=== PATIENT | male | born 1965 | race Caucasian/White ===

== ENCOUNTER → 2023-02-15 | Outpatient (CLI) | payer MEDICARE ==
--- NOTE | 2023-02-15 12:57 | US ---
EXAMINATION TYPE: US abdomen complete DATE OF EXAM: 02/15/2023 COMPARISON: NONE CLINICAL INDICATION: Male, 57 years old with history of R09.89 BRUIT; pain TECHNIQUE: Multiple sonographic images of the abdomen are obtained. FINDINGS: EXAM MEASUREMENTS: Liver Length: 11.8 cm Gallbladder Wall: 0.2 cm CBD: 0.5 cm Spleen: 16.7 cm Right Kidney: 13.3 x 7.2 x5.5 cm Left Kidney: 14.2 x 5[address] TEST EXAMINER NOTES: Pancreas: Obscured by bowel gas Liver: coarse echotexture. Main and left portal vein are prominent. Gallbladder: wnl Evidence for sonographic Gan's sign: No CBD: wnl Spleen: splenomegaly Right Kidney: No hydronephrosis or masses seen. Mildly enlarged Left Kidney: No hydronephrosis or masses seen. Mildly enlarged. Upper IVC: wnl Abd Aorta: Poorly visualized, mostly obscured by bowel. Anechoic area with well defined borders noted inferior to right kidney measuring 12.8 x 5.5 x 6.8cm. Exam limited by body habitus and overlying bowel gas. The pancreas is obscured by overlying bowel gas. Liver demonstrates coarsened echotexture without foc al lesion identified. Prominence of the patent portal veins. Gallbladder is unremarkable without evid ence of stones, wall thickening, or surrounding fluid. Negative sonographic Gan sign. Common bile duct is within normal limits. Splenomegaly. Both kidneys appear prominent size without evidence for h ydronephrosis, nephrolithiasis, or solid masses. The upper IVC is within normal limits. The abdominal aorta is obscured by overlying bowel gas. Thin-walled cystic lesion identified inferior to the right kidney measuring up to 12.8 cm. IMPRESSION: Limited examination due to patient body habitus and overlying bowel gas. 1. Thin-walled cystic 12.8 cm lesion inferior to the right kidney. This may represent an exophytic re nal cyst versus other etiologies. Further evaluation with CT abdomen pelvis with IV contrast is recom mended. 2. Splenomegaly.
== END | disposition home or self-care (01) ==
LOC: RADUSWWP 10:27
PROVIDERS: ATTEND Internal Medicine Gastroenterology
DX: R16.1 Splenomegaly, not elsewhere classified (principal); N28.1 Cyst of kidney, acquired; R10.9 Unspecified abdominal pain; R09.89 Other specified symptoms and signs involving the circulatory and respiratory systems
CPT/HCPCS: 76700

== ENCOUNTER 2023-02-21 01:38 | Inpatient (IN) | payer MEDICARE, MEDICAID ==
[2023-02-21] MEDS ORDERED: ONDANSETRON 4 MG/2 ML VIAL IVP STA (01:46)
[2023-02-21] MEDS: NALOXONE 0.4 MG/ML 1 ML VIAL IVP STA ×5 (01:46→03:28)
[2023-02-21 01:50] LABS: Glucose,Whole Blood 122 mg/dL (70-110)
[2023-02-21] MEDS ORDERED: SODIUM CHLORIDE 0.9% 2,000 ML IV STA (02:13)
[2023-02-21 02:42] LABS: ALT 55 U/L (4-49); AST 55 U/L (17-59); Acetaminophen <10.0 ug/mL; African American GFR (CKD) >90 (>60 ml/min/1.73 sqM); Albumin 3.5 g/dL (3.5-5.0); Alcohol <10 mg/dL; Alkaline Phosphatase 136 U/L (38-126); Anion Gap 12 mmol/L; Blood Urea Nitrogen 21 mg/dL (9-20); Carbon Dioxide 23 mmol/L (22-30); Chloride 103 mmol/L (98-107); Glucose 109 mg/dL (74-99); Non-African American GFR(CKD) >90 (>60 ml/min/1.73 sqM); Potassium 3.8 mmol/L (3.5-5.1); Salicylate <1.0 mg/dL; Sodium 138 mmol/L (137-145); Total Bilirubin 1.5 mg/dL (0.2-1.3); Total Protein 7.6 g/dL (6.3-8.2)
--- NOTE | 2023-02-21 02:55 | ED ---
Overdose HPI - General Chief Complaint: Overdose Stated Complaint: Overdose Time Seen by Provider: 02/21/23 01:45 Source: EMS Mode of arrival: EMS - History of Present Illness Initial Comments: 57-year-old male presents to the emergency department after he took an unknown amount of hydromorphone, gabapentin and Flexeril. It is reported by EMS that the patient got in an argument with his girlfriend. She saw him with a handful of pills in his hand. Patient apparently took these medications in an attempt to harm himself. Ingestion happened 30 minutes prior to hospital arrival. He is prescribed hydromorphone 4 mg to be taken 3 times daily as well as gabapentin 300 mg and Flexeril 10 mg. Patient cannot originally state how many of each pill he took. Respiratory rate is approximately 4 a minutes. When the patient is given Narcan 0.4 mg IV, he does respond and states that he took "2 extra Dilaudid" as well as "2 extra gabapentin". Patient is undressed and is found with a gun in his underwear. This is given to police who are here to petition the patient. We also found drug paraphernalia in his coat pocket - Related Data Allergies Allergy/AdvReac Type Severity Reaction Status Date / Time Unable to Assess Allergy Verified 02/21/23 01:45 Review of Systems ROS Statement: Those systems with pertinent positive or pertinent negative responses have been documented in the HPI. ROS Other: All systems not noted in ROS Statement are negative. Past Medical History Past Medical History: No Reported History Additional Past Medical History / Comment(s): UTO History of Any Multi-Drug Resistant Organisms: None Reported Past Surgical History: No Surgical Hx Reported Additional Past Surgical History / Comment(s): UTO Past Psychological History: No Psychological Hx Reported Smoking Status: Unknown if ever smoked Past Alcohol Use History: None Reported Past Drug Use History: None Reported General Exam Limitations: altered mental status General appearance: lethargic Head exam: Present: atraumatic, normocephalic, normal inspection Pupils: Present: miosis ENT exam: Present: mucous membranes dry Respiratory exam: Present: other (Patient has a respiratory rate of 2-4 upon arrival) Cardiovascular Exam: Present: regular rate, normal rhythm, normal heart sounds. Absent: systolic murmur, diastolic murmur, rubs, gallop, clicks Neurological exam: Present: altered Skin exam: Present: warm, dry, intact, normal color. Absent: rash Course Vital Signs 02/21/23 02/21/23 02/21/23 01:39 01:45 01:46 Pulse Rate 97 94 Respiratory 14 5 L 5 L Rate Blood Pressure 111/58 102/76 O2 Sat by Pulse 90 L 88 L Oximetry 02/21/23 02/21/23 02/21/23 02:46 02:48 02:51 Pulse Rate 82 81 Respiratory 7 L 6 L 15 Rate Blood Pressure 104/66 120/86 O2 Sat by Pulse 94 L 95 Oximetry 02/21/23 02/21/23 02/21/23 03:28 04:00 04:17 Pulse Rate 95 Respiratory 7 L 8 L 7 L Rate Blood Pressure 120/73 O2 Sat by Pulse 88 L Oximetry Medical Decision Making - Medical Decision Making Was pt. sent in by a medical professional or institution (, PA, EDUCATION AND TRAINING COORDINATOR, urgent care, hospital, or long term...) When possible be specific @ -No Did you speak to anyone other than the patient for history (EMS, parent, family, police, friend...)? What history was obtained from this source @ -Spoke with EMS for history Did you review nursing and triage notes (agree or disagree)? Why? @ -I reviewed and agree with nursing and triage notes Were old charts reviewed (outside hosp., previous admission, EMS record, old EKG, old radiological studies, urgent care reports/EKG's, long term records)? Report findings @ -No old charts were reviewed Differential Diagnosis (chest pain, altered mental status, abdominal pain women, abdominal pain men, vaginal bleeding, weakness, fever, dyspnea, syncope, headache, dizziness, GI bleed, back pain, seizure, CVA, palpatations, mental health, musculoskeletal)? @ -Differential Altered Mental Status: Hypoglycemia, DKA, hypercapnia, ETOH, overdose, CO poisoning, trauma, myxedema coma, HTN encephalopathy, infection, encephalitis, psychosis, intercranial hemorrhage, hepatic encephalopathy, meningitis, CVA, this is not meant to be an all-inclusive list EKG interpreted by me (3pts min.). @ -Yes and demonstrates sinus rhythm with rate 98..MN interval 140. QRS 106. QTC of 4:30. No acute ST segment elevations or depressions X-rays interpreted by me (1pt min.). @ -Yes and demonstrates patchy infiltrate lower lobe CT interpreted by me (1pt min.). @ -None done U/S interpreted by me (1pt. min.). @ -None done What testing was considered but not performed or refused? (CT, X-rays, U/S, labs)? Why? @ -None What meds were considered but not given or refused? Why? @ -None Did you discuss the management of the patient with other professionals (professionals i.e. , PA, EDUCATION AND TRAINING COORDINATOR, lab, RT, psych nurse, social work assistant, diesel tractor engine mechanic, teacher, chief compliance officer, case packer)? Give summary @ -Spoke with pack train driver from [facility] in regards to management of the patient. I also spoke with Angel from ICU Was smoking cessation discussed for >3mins.? @ -No Was critical care preformed (if so, how long)? @ -Yes, 35 minutes for multiple doses of Narcan with management of Narcan drip Were there social determinants of health that impacted care today? How? (H omelessness, low income, unemployed, alcoholism, drug addiction, transportation, low edu. Level, literacy, decrease access to med. care, long term, rehab)? @ -No Was there de-escalation of care discussed even if they declined (Discuss DNR or withdrawal of care, Hospice)? DNR status @ -No What co-morbidities impacted this encounter? (DM, HTN, Smoking, COPD, CAD, Cancer, CVA, ARF, Chemo, Hep., AIDS, mental health diagnosis, sleep apnea, morbid obesity)? @ -Chronic back pain Was patient admitted / discharged? Hospital course, mention meds given and route, prescriptions, significant lab abnormalities, going to OR and other pertinent info. @ -Upon arrival patient was placed in a trauma 2. His respiratory rate is approximately 2-4. He is placed on continuous pulse ox and cardiac monitoring. Patient is given 0.4 mg of Narcan with improvement in his respiratory rate and mental status. I attempt to obtain a history however patient is still overly sedated. Laboratory studies are conducted and a chest x-ray is performed. Patient does receive 2 additional 0.4 mg doses of Narcan with decreased respiratory drive. Because of this the patient is placed on a Narcan drip. I did speak with the pack train driver at [facility] in regards to management of the patient. States that due to chronic use of Dilaudid, Narcan should be kept at lowest acceptable dose. Patient is on 0.4 mg per hour with oxygenation of 96% without oxygen. Patient will require admission to the ICU due to the Narcan drip. Spoke with Angel the patient into the ICU. I also spoke with Dr. Silver for admission. Psychiatry will be consulted. Patient taken to the floor in serious condition with a guarded prognosis Undiagnosed new problem with uncertain prognosis? @ -Yes Drug Therapy requiring intensive monitoring for toxicity (Heparin, Nitro, Insulin, Cardizem)? @ -Narcan drip Were any procedures done? @ -No Diagnosis/symptom? @ -Acute intentional overdose-gabapentin/opiates/muscle relaxer Acute, or Chronic, or Acute on Chronic? @ -acute Uncomplicated (without systemic symptoms) or Complicated (systemic symptoms)? @ -complicated Side effects of treatment? @ -No Exacerbation, Progression, or Severe Exacerbation? @ -No Poses a threat to life or bodily function? How? (Chest pain, [place], [place], pneumonia, PE, COPD, DKA, ARF, appy, cholecystitis, CVA, Diverticulitis, Homicidal, Suicidal, threat to staff... and all critical care pts) @ -Yes patient has decreased respiratory drive due to opiate overdose - Lab Data Result diagrams: 02/21/23 02:24 02/21/23 02:07 Lab Results 02/21/23 02/21/23 02/21/23 Range/Units 01:49 02:07 02:07 WBC (3.8-10.6) k/uL RBC (4.30-5.90) m/uL Hgb (13.0-17.5) gm/dL Hct (39.0-53.0) % MCV (80.0-100.0) fL MCH (25.0-35.0) pg MCHC (31.0-37.0) g/dL RDW (11.5-15.5) % Plt Count (150-450) k/uL MPV Neutrophils % % Lymphocytes % % Monocytes % % Eosinophils % % Basophils % % Neutrophils # (1.3-7.7) k/uL Lymphocytes # (1.0-4.8) k/uL Monocytes # (0-1.0) k/uL Eosinophils # (0-0.7) k/uL Basophils # (0-0.2) k/uL Sodium 138 (137-145) mmol/L Potassium 3.8 (3.5-5.1) mmol/L Chloride 103 (98-107) mmol/L Carbon Dioxide 23 (22-30) mmol/L Anion Gap 12 mmol/L BUN 21 H (9-20) mg/dL Creatinine 0.61 L (0.66-1.25) mg/dL Est GFR (CKD-EPI)AfAm >90 (>60 ml/min/1.73 sqM) Est GFR (CKD-EPI)NonAf >90 (>60 ml/min/1.73 sqM) Glucose 109 H (74-99) mg/dL POC Glucose (mg/dL) 122 H (70-110) mg/dL POC Glu Motion Picture Equipment Supervisor ID Angel Luis Bah Calcium 9.0 (8.4-10.2) mg/dL Total Bilirubin 1.5 H (0.2-1.3) mg/dL AST 55 (17-59) U/L ALT 55 H (4-49) U/L Alkaline Phosphatase 136 H (38-126) U/L Total Protein 7.6 (6.3-8.2) g/dL Albumin 3.5 (3.5-5.0) g/dL Urine Color Urine Appearance (Clear) Urine pH (5.0-8.0) Ur Specific [place] (1.001-1.035) Urine Protein (Negative) Urine Glucose (UA) (Negative) Urine Ketones (Negative) Urine Blood (Negative) Urine Nitrite (Negative) Urine Bilirubin (Negative) Urine Urobilinogen (<2.0) mg/dL Ur Leukocyte Esterase (Negative) Urine RBC (0-5) /hpf Urine WBC (0-5) /hpf Hyaline Casts (0-2) /lpf Urine Mucus (None) /hpf Salicylates <1.0 mg/dL Urine Opiates Screen Not Detected (NotDetected) Ur Oxycodone Screen Detected H (NotDetected) Urine Methadone Screen Not Detected (NotDetected) Ur Propoxyphene Screen Not Detected (NotDetected) Acetaminophen <10.0 ug/mL Ur Barbiturates Screen Not Detected (NotDetected) U Tricyclic Antidepress Detected H (NotDetected) Ur Phencyclidine Scrn Not Detected (NotDetected) Ur Amphetamines Screen Not Detected (NotDetected) U Methamphetamines Scrn Not Detected (NotDetected) U Benzodiazepines Scrn Not Detected (NotDetected) Urine Cocaine Screen Detected H (NotDetected) U Marijuana (THC) Screen Detected H (NotDetected) Serum Alcohol <10 mg/dL 02/21/23 02/21/23 Range/Units 02:24 02:24 WBC 7.4 (3.8-10.6) k/uL RBC 4.34 (4.30-5.90) m/uL Hgb 13.5 (13.0-17.5) gm/dL Hct 40.0 (39.0-53.0) % MCV 92.0 (80.0-100.0) fL MCH 31.1 (25.0-35.0) pg MCHC 33.8 (31.0-37.0) g/dL RDW 13.9 (11.5-15.5) % Plt Count 122 L (150-450) k/uL MPV 9.5 Neutrophils % 76 % Lymphocytes % 12 % Monocytes % 6 % Eosinophils % 3 % Basophils % 0 % Neutrophils # 5.7 (1.3-7.7) k/uL Lymphocytes # 0.9 L (1.0-4.8) k/uL Monocytes # 0.4 (0-1.0) k/uL Eosinophils # 0.2 (0-0.7) k/uL Basophils # 0.0 (0-0.2) k/uL Sodium (137-145) mmol/L Potassium (3.5-5.1) mmol/L Chloride (98-107) mmol/L Carbon Dioxide (22-30) mmol/L Anion Gap mmol/L BUN (9-20) mg/dL Creatinine (0.66-1.25) mg/dL Est GFR (CKD-EPI)AfAm (>60 ml/min/1.73 sqM) Est GFR (CKD-EPI)NonAf (>60 ml/min/1.73 sqM) Glucose (74-99) mg/dL POC Glucose (mg/dL) (70-110) mg/dL POC Glu Motion Picture Equipment Supervisor ID Calcium (8.4-10.2) mg/dL Total Bilirubin (0.2-1.3) mg/dL AST (17-59) U/L ALT (4-49) U/L Alkaline Phosphatase (38-126) U/L Total Protein (6.3-8.2) g/dL Albumin (3.5-5.0) g/dL Urine Color Yellow Urine Appearance Clear (Clear) Urine pH 6.0 (5.0-8.0) Ur Specific [place] 1.035 (1.001-1.035) Urine Protein 1+ H (Negative) Urine Glucose (UA) Negative (Negative) Urine Ketones Trace H (Negative) Urine Blood Trace H (Negative) Urine Nitrite Negative (Negative) Urine Bilirubin Negative (Negative) Urine Urobilinogen 4.0 (<2.0) mg/dL Ur Leukocyte Esterase Negative (Negative) Urine RBC 26 H (0-5) /hpf Urine WBC 3 (0-5) /hpf Hyaline Casts 3 H (0-2) /lpf Urine Mucus Moderate H (None) /hpf Salicylates mg/dL Urine Opiates Screen (NotDetected) Ur Oxycodone Screen (NotDetected) Urine Methadone Screen (NotDetected) Ur Propoxyphene Screen (NotDetected) Acetaminophen ug/mL Ur Barbiturates Screen (NotDetected) U Tricyclic Antidepress (NotDetected) Ur Phencyclidine Scrn (NotDetected) Ur Amphetamines Screen (NotDetected) U Methamphetamines Scrn (NotDetected) U Benzodiazepines Scrn (NotDetected) Urine Cocaine Screen (NotDetected) U Marijuana (THC) Screen (NotDetected) Serum Alcohol mg/dL Disposition Clinical Impression: Opiate overdose, Gabapentin overdose, Muscle relaxant overdose Disposition: ADMITTED IP TO THIS [facility] Condition: Serious Is patient prescribed a controlled substance at d/c from ED?: No Time of Disposition: 05:13 Decision to Admit Reason: Admit from EC Decision Date: 02/21/23 Decision Time: 05:13
[2023-02-21 03:08] LABS: Basophils % (A) 0 %; Eosinophils # (A) 0.2 k/uL (0-0.7); Eosinophils % (A) 3 %; HGB 13.5 gm/dL (13.0-17.5); Lymphocytes # (A) 0.9 k/uL (1.0-4.8); Lymphocytes % (A) 12 %; MCH 31.1 pg (25.0-35.0); MCHC 33.8 g/dL (31.0-37.0); Mean Platelet Volume 9.5; Monocytes # (A) 0.4 k/uL (0-1.0); Monocytes % (A) 6 %; Neutrophils # (A) 5.7 k/uL (1.3-7.7); Neutrophils % (A) 76 %; Platelet Count 122 k/uL (150-450); RBC 4.34 m/uL (4.30-5.90); RDW 13.9 % (11.5-15.5); WBC 7.4 k/uL (3.8-10.6)
[2023-02-21 03:47] LABS: Amphetamine Screen,Urine Not Detected (NotDetected); Barbiturate Screen,Urine Not Detected (NotDetected); Benzodiazepines Screen,Urine Not Detected (NotDetected); Cocaine Screen,Urine Detected (NotDetected); Methadone Screen, Urine Not Detected (NotDetected); Opiate Screen,Urine Not Detected (NotDetected); Oxycodone Screen, Urine Detected (NotDetected); Phencyclidine Screen,Urine Not Detected (NotDetected); Tricyclic Antidepressant,Urine Detected (NotDetected); Urn Cannabinoid Scrn Detected (NotDetected)
[2023-02-21 03:49] LABS: Appearance,Urine Clear (Clear); Bilirubin,Urine Negative (Negative); Blood,Urine Trace (Negative); Color,Urine Yellow; Glucose,Urine (UA) Negative (Negative); Hyaline Casts,Urine 3 /lpf (0-2); Ketones,Urine Trace (Negative); Leukocyte Esterase,Urine Negative (Negative); Mucus,Urine Moderate /hpf; Nitrite,Urine Negative (Negative); Protein,Urine 1+ (Negative); RBC,Urine 26 /hpf (0-5); Specific Gravity,Urine 1.035 (1.001-1.035); WBC,Urine 3 /hpf (0-5)
[2023-02-21] MEDS: NALOXONE (MDV) 2 MG in SODIUM CHLORIDE 0.9% 250 ML IV SCH ×2 (04:17→10:00)
--- NOTE | 2023-02-21 05:39 | XR ---
EXAM: XR Chest, 1 View CLINICAL HISTORY: ITS.REASON XR Reason: overdose TECHNIQUE: Frontal view of the chest. COMPARISON: No relevant prior studies available. FINDINGS: Lungs: Patchy consolidation in the lateral left lower lobe. Pleural space: Unremarkable. No pneumothorax. Heart: Unremarkable. No cardiomegaly. Mediastinum: Unremarkable. Bones/joints: Unremarkable. IMPRESSION: Patchy consolidation in the lateral left lower lobe which may be due to aspiration or infection.
[2023-02-21] MEDS: SODIUM CHLORIDE 0.9% 1,000 ML IV SCH ×2 (06:03→15:44)
[2023-02-21 06:05] LABS: Glucose,Whole Blood 95 mg/dL (70-110)
--- NOTE | 2023-02-21 06:56 | P.CNPUL ---
History of Present Illness Consult date: 02/21/23 Requesting physician: Chantal Luna Reason for consult: other (Intentional overdose; ICU management) Chief complaint: Intentional overdose History of present illness: I am seeing this patient today 02/21/2023 in new consultation in the emergency room, trauma [place] 1. The patient presented with an intentional overdose. Little is known about the patient's past medical history. Patient is currently in a stuporous state and unable to participate in HPI. Apparently, the patient was in an argument with his girlfriend when he took a handful of pills. This was apparently witnessed, and was approximately 30 minutes before arrival. He is prescribed hydromorphone 4 mg tabs, gabapentin 300 mg tabs, and Flexeril 10 mg tabs. He reportedly follows with a pain clinic. It is unclear how many pills he took of each. He did not receive activated charcoal. On arrival to the emergency room, he was found to have gun in his underwear, he is petitioned for the suicide attempt. He also was found to have drug paraphernalia and his coat pocket. Urinalysis was positive for oxycodone, TCAs, cocaine, and marijuana. Serum alcohol less than 10. On my examination, the patient is currently stuporous. He is breathing approximately 6-10 breaths per minute. SPO2 is 95% on room air. End-tidal CO2 40. He did receive 3 doses of Narcan in the ER, and is currently on a Narcan infusion at 0.4 mg per hour. Poison control is involved. CBC on arrival was unremarkable despite some mild thrombocytopenia. BMP on arrival showed a sodium 138, potassium 3.8, chloride 103, serum bicarb 23, BUN 21, creatinine 0.61, glucose 109. LFTs mildly elevated. Patient did receive a 2 L normal saline bolus in the emergency room. Normal saline is infusing at 100 ML's per hour. He is making adequate urine output and has an indwelling urinary catheter. Urine appears concentrated. A chest x-ray showed a patchy consolidation of the left lower lobe which may be due to aspiration or infection. Patient is afebrile. No reports of emesis or aspiration. EKG does not show any significant QT prolongation. Patient will be monitored in the intensive care unit. His respiratory status is borderline, and may require intubation if his respiratory depression worsens. Prognosis is guarded. Review of Systems ROS unobtainable: due to mental status Past Medical History Past Medical History: No Reported History Additional Past Medical History / Comment(s): UTO History of Any Multi-Drug Resistant Organisms: None Reported Past Surgical History: No Surgical Hx Reported Additional Past Surgical History / Comment(s): UTO Past Psychological History: No Psychological Hx Reported Smoking Status: Unknown if ever smoked Past Alcohol Use History: None Reported Past Drug Use History: None Reported Medications and Allergies Allergies Allergy/AdvReac Type Severity Reaction Status Date / Time Unable to Assess Allergy Verified 02/21/23 01:45 Physical Exam Vitals: Vital Signs Pulse Resp BP Pulse Ox 02/21/23 04:17 7 L 02/21/23 04:00 95 8 L 120/73 88 L 02/21/23 03:28 7 L 02/21/23 02:51 81 15 120/86 95 02/21/23 02:48 6 L 02/21/23 02:46 82 7 L 104/66 94 L 02/21/23 01:46 5 L 02/21/23 01:45 94 5 L 102/76 88 L 02/21/23 01:39 97 14 111/58 90 L Intake and Output 02/20/23 02/20/23 02/21/23 14:59 22:59 06:59 Other: Weight 102.693 kg GENERAL EXAM: Stuporous, 57-year-old white male, currently only arousable to painful stimuli. HEAD: Normocephalic and atraumatic EYES: Pupils are 3 mm bilaterally and responsive to light NOSE: Clear with pink turbinates. THROAT: No erythema or exudates. Edentulous. Dry mucous membranes. NECK: No masses, no JVD. CHEST: No chest wall deformity. LUNGS: He is sonorous. Equal air entry with no crackles, wheeze, rhonchi or dullness. On room air. Respiratory rate 9; End tidal CO2 40 CVS: S1 and S2 normal with no audible murmur, regular rhythm. No extra heart sounds ABDOMEN: No hepatosplenomegaly, active bowel sounds, no guarding or rigidity. There is a reducible abdominal hernia SPINE: No scoliosis or deformity SKIN: There is a right medial ulceration measuring approximately 1.25 cm x 1.25 cm and 0.5 cm deep, possible venous stasis ulcer CENTRAL NERVOUS SYSTEM: He is largely unable to participate with an in-depth neurological examination. He is stuporous. EXTREMITIES: There is no peripheral edema, clubbing, or cyanosis. Peripheral pulses are intact. Results - Laboratory Findings CBC and BMP: 02/21/23 02:24 02/21/23 02:07 Abnormal lab findings: Abnormal Labs 02/21/23 02/21/23 02/21/23 01:49 02:07 02:07 Plt Count Lymphocytes # BUN 21 H Creatinine 0.61 L Glucose 109 H POC Glucose (mg/dL) 122 H Total Bilirubin 1.5 H ALT 55 H Alkaline Phosphatase 136 H Urine Protein Urine Ketones Urine Blood Urine RBC Hyaline Casts Urine Mucus Ur Oxycodone Screen Detected H U Tricyclic Antidepress Detected H Urine Cocaine Screen Detected H U Marijuana (THC) Screen Detected H 02/21/23 02/21/23 02:24 02:24 Plt Count 122 L Lymphocytes # 0.9 L BUN Creatinine Glucose POC Glucose (mg/dL) Total Bilirubin ALT Alkaline Phosphatase Urine Protein 1+ H Urine Ketones Trace H Urine Blood Trace H Urine RBC 26 H Hyaline Casts 3 H Urine Mucus Moderate H Ur Oxycodone Screen U Tricyclic Antidepress Urine Cocaine Screen U Marijuana (THC) Screen - Diagnostic Findings Chest x-ray: image reviewed Assessment and Plan Assessment: Intentional overdose, patient reportedly took a handful of unknown pills. He is prescribed hydromorphone 4 mg tabs, gabapentin 300 mg tabs, and Flexeril 10 mg tabs. Urine toxicology screen positive for oxycodone, TCAs, cocaine, and marijuana. Possible aspiration pneumonia/pneumonitis, chest x-ray demonstrates a left lower lobe infiltrate. Polysubstance abuse Right medial ankle wound Thrombocytopenia Plan: Patient's medications, labs, and chest x-ray reviewed Patient will be admitted to the intensive care unit for close monitoring of his respiratory status. He is currently breathing anywhere from 6-10 breaths per minute. End-tidal CO2 currently 40. Patient awakens to painful stimuli. He may eventually need intubation for airway protection if his status worsen. We will hold off for now. Additionally, chest x-ray shows possible left lower lobe pneumonia, suspicious for aspiration pneumonia. I will add Zosyn empirically. Continue Narcan infusion Poison control is involved Patient is petitioned for suicide attempt. Suicide and aspiration precautions. Patient has sitter at bedside. Obtain CPK, EKG and troponins. Once medically stable, he will be evaluated by inpatient psychiatry. We will continue to monitor the patient closely in the intensive care unit, and further recommendations are forthcoming. I have personally seen and examined the patient, performed the documentation and the assessment and plan as written. Number of minutes spent on the visit:20 On today's evaluation, I performed a joint evaluation of this patient along with the nurse practitioner. The patient's is currently awake and communicating. The patient is still somewhat foggy and he is not aware of the exact events that led him to take all those medications. The exact quantity of the pills taken is not known. We'll believe he took a combination of hydromorphone, gabapentin and Flexeril. Is currently on Narcan drip running at 0.4 mg an hour. His Kathy status is stable. He is on oxygen at room air and his pulse ox is 96%. There may be a concern for severe depression with possible suicidal ideations. Awaiting psychiatric evaluation. Meanwhile, his chest x-ray reveals a left lower lobe pulmonary infiltrates which could be an early pneumonia and aspiration needs to be considered the situation. He is currently on IV Zosyn. Troponins are negative. CPK is not elevated. Renal function stable. echoes at 7.4. He is clinically stable and hemodynamically stable. The kristin iend is at the bedside at this point in time. He is on normal saline 100 mL an hour. He received a total of 3 L bolus. He is on social security/disability and he is not seeing his primary care physician a regular basis. He'll be kept in ICU. The Narcan drip will be weaned off and discontinued. Will monitor his mental status. Her monitor breathing and oxygenation. Continued IV Zosyn. Awaiting psychiatric evaluation. Provided incentive spirometer. A repeat chest x-ray in the morning. Provide diet. Heparin subcu portably prophylaxis. We'll continue to follow. He also will need a sitter at the bedside at all times. Time with Patient: Greater than 30
[2023-02-21] MEDS: PIPERACILLIN-TAZOBACTAM 3.375 GM in SODIUM CHLORIDE 0.9% 100 ML IVPB SCH ×3 (07:28→23:40)
--- NOTE | 2023-02-21 11:18 | P.CONS ---
History of Present Illness - Reason for Consult Consult date: 02/21/23 wound care - History of Present Illness This is a 57-year-old gentleman being seen in the ICU for a nonhealing ulceration to the right medial ankle. Patient states his ulceration has been there for a few months. He states that it started out as a bug bite and has progressively gotten worse. He has had significant amount of drainage from the site. He has not used any dressings other than triple antibiotic ointment. P atient denies diabetes. Ulceration measures approximately 1 x 1 x 0.2 cm with nonviable tissue including Slough within the wound bed and minimal granulation. The wound edges are attached to the lung base there is no tunneling or undermining noted. The ulceration does have an appearance of an arterial ulceration however patient does have 1+ pedal pulse to the right. Review Of Systems: Constitutional: No fever, no chills, no night sweats. No weight change. No weakness, fatigue or lethargy. No daytime sleepiness. Integumentary:reports wounds, no lesions. No rash or pruritus. No unusual b ruising. No change in hair or nails. Physical exam: General Appearance: Alert, cooperative, no distress, appears stated age. Skin: See HPI all other Skin color, texture, tugor normal, no rashes or lesions. Neurologic: Alert oriented x3 Assessment: 1. Nonhealing ulceration right ankle with fat layer exposure 2. Nicotine dependence Plan: 1. Apply honey gel and border foam. Change Sunday. Patient would benefit from advanced wound care and wound care center. We will happy to see him in an outpatient setting. Thank you for the consultation any questions with contact the wound care center DNP note has been reviewed and discussed with Dr. Rich and the impression an d plan of care has been directed as dictated. Past Medical History Past Medical History: No Reported History Additional Past Medical History / Comment(s): UTO History of Any Multi-Drug Resistant Organisms: None Reported Past Surgical History: Back Surgery Additional Past Surgical History / Comment(s): UTO Past Anesthesia/Blood Transfusion Reactions: No Reported Reaction Past Psychological History: No Psychological Hx Reported Smoking Status: Unknown if ever smoked Past Alcohol Use History: None Reported Past Drug Use History: None Reported Additional Drug Use History / Comment(s): pt with positive drug screen Medications and Allergies Home Medications Medication Instructions Recorded Confirmed Type Albuterol Sulfate [Albuterol 2 puff PO RT-Q4H PRN 02/21/23 02/21/23 History Sulfate Hfa] Budesonide/Formoterol Fumarate 1 puff INHALATION RT-BID 02/21/23 02/21/23 History [Symbicort 80-4.5 Mcg Inhaler] Cyclobenzaprine [Flexeril] 10 mg PO TID 02/21/23 02/21/23 History Gabapentin [Neurontin] 300 mg PO TID 02/21/23 02/21/23 History HYDROmorphone [Dilaudid] 4 mg PO TID PRN 02/21/23 02/21/23 History Omeprazole [PriLOSEC] 20 mg PO DAILY 02/21/23 02/21/23 History Allergies Allergy/AdvReac Type Severity Reaction Status Date / Time Unable to Assess Allergy Verified 02/21/23 09:53 Physical Exam Vitals: Vital Signs Temp Pulse Resp BP Pulse Ox 02/21/23 10:00 93 24 144/87 94 L 02/21/23 09:30 89 15 129/75 94 L 02/21/23 09:00 86 12 125/72 95 02/21/23 08:30 90 20 107/51 94 L 02/21/23 08:15 83 11 L 90 L 02/21/23 08:00 96.8 F L 70 11 L 115/51 92 L 02/21/23 07:45 76 11 L 91 L 02/21/23 07:30 75 25 H 108/47 91 L 02/21/23 07:15 78 25 H 110/54 91 L 02/21/23 07:00 97.1 F L 84 25 H 110/54 91 L 02/21/23 06:03 90 16 98 02/21/23 04:17 7 L 02/21/23 04:00 95 8 L 120/73 88 L 02/21/23 03:28 7 L 02/21/23 02:51 81 15 120/86 95 02/21/23 02:48 6 L 02/21/23 02:46 82 7 L 104/66 94 L 02/21/23 01:46 5 L 02/21/23 01:45 94 5 L 102/76 88 L 02/21/23 01:39 97 14 111/58 90 L Intake and Output 02/20/23 02/21/23 02/21/23 22:59 06:59 14:59 Intake Total 862.5 Output Total 255 Balance 607.5 Intake: IV 300 Sodium Chloride 0.9% 1, 300 000 ml @ 100 mls/hr IV . Q10H [facility] Rx#:[id number] Intake, IV Titration 462.5 Amount Naloxone (Mdv) 2 mg In 262.5 Sodium Chloride 0.9% 250 ml @ 0.4 MG/HR 50 mls/hr IV .Q5H [facility] Rx#:[id number] Piperacillin-Tazobactam 3 100 .375 gm In Sodium Chloride 0.9% 100 ml @ 25 mls/hr IVPB Q8HR [facility] Rx# :[id number] Sodium Chloride 0.9% 1, 100 000 ml @ 100 mls/hr IV . Q10H [facility] Rx#:[id number] Oral 100 Output: Urine 255 Other: Voiding Method Indwelling Catheter Indwelling Catheter Weight 102.693 kg Results CBC & Chem 7: 02/21/23 02:24 02/21/23 02:07 Labs: Abnormal Lab Results - Last 24 Hours (Table) 02/21/23 02/21/23 02/21/23 Range/Units 01:49 02:07 02:07 Plt Count (150-450) k/uL Lymphocytes # (1.0-4.8) k/uL BUN 21 H (9-20) mg/dL Creatinine 0.61 L (0.66-1.25) mg/dL Glucose 109 H (74-99) mg/dL POC Glucose (mg/dL) 122 H (70-110) mg/dL Total Bilirubin 1.5 H (0.2-1.3) mg/dL ALT 55 H (4-49) U/L Alkaline Phosphatase 136 H (38-126) U/L Creatine Kinase (55-170) U/L Urine Protein (Negative) Urine Ketones (Negative) Urine Blood (Negative) Urine RBC (0-5) /hpf Hyaline Casts (0-2) /lpf Urine Mucus (None) /hpf Ur Oxycodone Screen Detected H (NotDetected) U Tricyclic Antidepress Detected H (NotDetected) Urine Cocaine Screen Detected H (NotDetected) U Marijuana (THC) Screen Detected H (NotDetected) 02/21/23 02/21/23 02/21/23 Range/Units 02:24 02:24 06:58 Plt Count 122 L (150-450) k/uL Lymphocytes # 0.9 L (1.0-4.8) k/uL BUN (9-20) mg/dL Creatinine (0.66-1.25) mg/dL Glucose (74-99) mg/dL POC Glucose (mg/dL) (70-110) mg/dL Total Bilirubin (0.2-1.3) mg/dL ALT (4-49) U/L Alkaline Phosphatase (38-126) U/L Creatine Kinase 38 L (55-170) U/L Urine Protein 1+ H (Negative) Urine Ketones Trace H (Negative) Urine Blood Trace H (Negative) Urine RBC 26 H (0-5) /hpf Hyaline Casts 3 H (0-2) /lpf Urine Mucus Moderate H (None) /hpf Ur Oxycodone Screen (NotDetected) U Tricyclic Antidepress (NotDetected) Urine Cocaine Screen (NotDetected) U Marijuana (THC) Screen (NotDetected) Assessment and Plan (1) Non-pressure chronic ulcer of right ankle with fat layer exposed Current Visit: Yes Status: Acute Code(s): L97.312 - NON-PRS CHRONIC ULCER OF RIGHT ANKLE W FAT LAYER EXPOSED SNOMED Code(s): 96335869322312447 (2) Nicotine dependence Current Visit: Yes Status: Acute Code(s): F17.200 - NICOTINE DEPENDENCE, UNSPECIFIED, UNCOMPLICATED SNOMED Code(s): 34809129
[2023-02-21] MEDS ORDERED: haloperidoL 5 MG TAB PO PRN (14:12)
[2023-02-21] MEDS ORDERED: HALOPERIDOL LACTATE 5 MG/ML 1 ML VIAL IM PRN (14:12)
[2023-02-21] MEDS ORDERED: LORazepam 2 MG/ML INJ IM PRN (14:12)
--- NOTE | 2023-02-21 14:19 | P.CN ---
Psychiatric Consult - . Consult date: 02/21/23 Consult:: 02/21/23 13:10 IDENTIFYING DATA: This patient is a 57-year-old male, currently lives in an apartment alone, she has 3 kids, he collects SSI. REASON FOR REFERRAL: Psychiatry was consulted for intentional overdose HISTORY OF PRESENT ILLNESS: The patient presented to the hospital on 02/21 to the ER via EMS. Apparently patient took an unknown amount of hydromorphone, Neurontin and also Flexeril. Patient was petitioned by a police liaison after the supposedly overdosed. Patient was admitted to the ICU and is currently being treated, she was agreeable to speak with contract technical writer today at the bedside. He claims that he moved to [place] from [facility]. He claims that he has been in town for about a year now. He claims that he is originally from here. He states that he "took a bunch of medicine" however stated that he is not sure of how much she had taken. Patient was fairly evasive, vague, bizarre at times with his answers, he was rambling at times during the interview. He spoke of being" too much pain" and states ""I've been dealing with a lot of loss in my life". She claims that he is not on "medications" and proceeded to explain that she does best on a combination of Xanax and Adderall and am itriptyline. He states that he is not getting the proper medications and [place] at this time and states that his psychiatrist in [place] is not able to prescribe it for him anymore. He claims that he used to be taking testosterone as well. He claims that he is not been sleeping well, not been feeling Ray, endorsing depression and anxiety. States that he is having a fight with his girlfriend and claims that he overdosed in front of her. He denied that it was a suicide attempt and became defensive, minimizing his need for hospitalization. Claims that he does have racing thoughts. States that his appetite as been poor. He also claims that he does hear voices and states that they are "demons talking to me". She denies any visual hallucinations. At this time patient denies any current suicidal or homical ideations, intent or plan. Patients admits to using no recreational drugs or cigarettes PAST PSYCHIATRIC HISTORY: Patient has a a history of "schizophrenia, depression and anxiety". Patient states that he was previously on amitriptyline, Xanax and Adderall. He claims that he was previously admitted to the psychiatric unit on the mental health unit several years back. Patient denies any psychiatric outpatient follow-up currently admission however states that he used to work with a psychiatrist in [place] when he lived there. Patient denies any history of suicide attempts in the past. Past Medical History: No Reported History Additional Past Medical History / Comment(s): UTO History of Any Multi-Drug Resistant Organisms: None Reported Past Surgical History: No Surgical Hx Reported Additional Past Surgical History / Comment(s): UTO Past Psychological History: No Psychological Hx Reported Smoking Status: Unknown if ever smoked Past Alcohol Use History: None Reported Past Drug Use History: None Reported ALLERGIES: as per EMR. CHEMICAL DEPENDENCY HISTORY: as per HPI. FAMILY PSYCHIATRIC/SUBSTANCE USE HISTORY: Cleans that his grandmother had depression SOCIAL HISTORY: Patient was born and raised in [place] then claims that he lived in [place] for about 22 years. States that he moved back to [place]. 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 Claims that he did go to [facility] several times in the past for drug-related charges in [place]. States that he has 3 kids, collects SSI, he lives in an apartment alone. MENTAL STATUS EXAM: General Appearance: Patient appears to be bald/shaved head, trimmed short edward, several tattoos, stated age is alert, bizarre and difficult to redirect. Patient appears to have fair hygiene and grooming wearing hospital gown with poor eye contact. Behavior: Patient is calmly lying in bed without any agitated behavior. Bizarre at times. Speech: Patient's speech is fluent and nonpressured. Rambling Mood/Affect: Patient reports their mood is "depressed and anxious", affect is congruent Suicidality/Homicidality: Patient denies having any suicidal or homicidal ideation intent or plan. Perceptions: Patient denies any visual hallucinations and denies any auditory hallucinations Though content/process: Bizarre, loose associations, rambling. Tangential. Memory and concentration: AOX3, grossly intact for the purposes of this session. Can spell "WORLD" backwards Judgment and insight: poor IMPRESSIONS: Schizoaffective disorder Overdose of medications PLAN: -At this time patient DOES meet criteria for inpatient psychiatric admission. -Would recommend the following medication changes/additions: Paliperidone. 3 mg daily at bedtime for mood stabilization/psychosis, Haldol and Ativan every 6 hours both IM and by mouth when necessary for agitation/anxiety. -Continue 1:1 sitter for safety until patient is safely transferred to the mental health unit -Cannot leave AMA at this time. Patient will need a petition and certification if attempting to leave AMA. -When medically stable, patient is eligible for transfer to a psych bed when available. -Communicated plan to patient's nurse -Psychiatry will sign off at this time -Please contact with any questions. 02/21/23 14:10 02/21/23 14:13
[2023-02-21] MEDS: LORazepam 1 MG TAB PO PRN ×2 (14:28→20:18)
[2023-02-21] MEDS ORDERED: Potassium Replacement Protocol 1 EACH MISC MISCELLANE PRN (14:30)
[2023-02-21] MEDS ORDERED: POTASSIUM CHLORIDE ER 20 MEQ TAB.ER PO SCH (15:00)
--- NOTE | 2023-02-21 15:39 | P.HPIM ---
History of Present Illness H&P Date: 02/21/23 Chief Complaint: Intentional overdose This is a 57-year-old gentleman with past medical history significant for schizoaffective disorder, anxiety, depression, reports ADHD, chronic pain syndrome and multiple other medical issues admitted with intentional overdose. Moved to [place] one year ago from [place]. Agitated, expresses that he cannot find a doctor to prescribe him the Xanax, Adderall and amitriptyline that his [place] psychiatrist had been prescribing. Also reports he used to be on testosterone. Currently on Dilaudid, Neurontin and Flexeril per pain special ist. Reports minimal sleep or the last 4 days, worsening agitation depression ,anxiety accompanied by unending racing thoughts. Proceeded to have a argument with his girlfriend and took a handful of pills in front of her. When asked if this was an intentional overdose, patient stated that he is tired of everyone "Fu with him." ER reports, patient arrived with a firearm in his underwear and drug paraphernalia in his coat pockets. Toxicology screen detected oxycodone, tricyclic antidepressants, cocaine, marijuana and serum alcohol less than 10. Poison control was notified ,patient received 3 doses of Narcan and placed on a Narcan drip, received 2 L IV fluid bolus and placed on IV fluid hydration. QT currently at 0.36. Denies chest pain, palpitations or shortness of breath. Chest x-ray reporting patchy left lateral lower lobe consolidation. IV Zosyn initiated. Denies nausea ,vomiting. Denies syncope. On admission respiratory rate dropped into the single digits, maintaining O2 sats in high 80s to low 90s on room air with the entire a CO2 of 40. Patient currently maintaini ng O2 sats in the low 90s on room air, and tidal CO2 37. Respiratory rate 16- 25. Afebrile, normal WBC, hemoglobin 13.5, MCV 92, platelets 122, sodium 138, potassium 3.8, bicarbonate 23, BUN 21, creatinine 0.61, glucose 109, total bili 1.5, AST 55, alk phos 136, creatinine kinase 38. UA. Negative nitrates, moderate mucus. Review of Systems ROS Statement: Those systems with pertinent positive or pertinent negative responses have been documented in the HPI. ROS Other: All systems not noted in ROS Statement are negative. Past Medical History Past Medical History: GERD/Reflux Additional Past Medical History / Comment(s): . History of Any Multi-Drug Resistant Organisms: None Reported Past Surgical History: Back Surgery Additional Past Surgical History / Comment(s): . Past Anesthesia/Blood Transfusion Reactions: No Reported Reaction Past Psychological History: Anxiety, Depression, Schizophrenia Smoking Status: Current every day smoker Past Alcohol Use History: None Reported Past Drug Use History: None Reported Additional Drug Use History / Comment(s): pt with positive drug screen Medications and Allergies Home Medications Medication Instructions Recorded Confirmed Type Albuterol Sulfate [Albuterol 2 puff PO RT-Q4H PRN 02/21/23 02/21/23 History Sulfate Hfa] Budesonide/Formoterol Fumarate 1 puff INHALATION RT-BID 02/21/23 02/21/23 History [Symbicort 80-4.5 Mcg Inhaler] Cyclobenzaprine [Flexeril] 10 mg PO TID 02/21/23 02/21/23 History Gabapentin [Neurontin] 300 mg PO TID 02/21/23 02/21/23 History HYDROmorphone [Dilaudid] 4 mg PO TID PRN 02/21/23 02/21/23 History Omeprazole [PriLOSEC] 20 mg PO DAILY 02/21/23 02/21/23 History Allergies Allergy/AdvReac Type Severity Reaction Status Date / Time No Known Allergies Allergy Verified 02/21/23 14:44 Physical Exam Vitals: Vital Signs Temp Pulse Resp BP Pulse Ox 02/21/23 14:00 91 22 122/72 91 L 02/21/23 13:00 88 19 107/67 91 L 02/21/23 12:00 97.8 F 88 12 123/66 92 L 02/21/23 11:44 11 L 02/21/23 11:00 84 11 L 134/75 93 L 02/21/23 10:00 93 24 144/87 94 L 02/21/23 09:30 89 15 129/75 94 L 02/21/23 09:00 86 12 125/72 95 02/21/23 08:30 90 20 107/51 94 L 02/21/23 08:15 83 11 L 90 L 02/21/23 08:00 96.8 F L 70 11 L 115/51 92 L 02/21/23 07:45 76 11 L 91 L 02/21/23 07:30 75 25 H 108/47 91 L 02/21/23 07:15 78 25 H 110/54 91 L 02/21/23 07:00 97.1 F L 84 25 H 110/54 91 L 02/21/23 06:03 90 16 98 02/21/23 04:17 7 L 02/21/23 04:00 95 8 L 120/73 88 L 02/21/23 03:28 7 L 02/21/23 02:51 81 15 120/86 95 02/21/23 02:48 6 L 02/21/23 02:46 82 7 L 104/66 94 L 02/21/23 01:46 5 L 02/21/23 01:45 94 5 L 102/76 88 L 02/21/23 01:39 97 14 111/58 90 L Intake and Output 02/21/23 02/21/23 02/21/23 06:59 14:59 22:59 Intake Total 1687.5 Output Total 555 Balance 1132.5 Intake: IV 700 Sodium Chloride 0.9% 1, 700 000 ml @ 100 mls/hr IV . Q10H [facility] Rx#:[id number] Intake, IV Titration 462.5 Amount Naloxone (Mdv) 2 mg In 262.5 Sodium Chloride 0.9% 250 ml @ 0.4 MG/HR 50 mls/hr IV .Q5H [facility] Rx#:[id number] Piperacillin-Tazobactam 3 100 .375 gm In Sodium Chloride 0.9% 100 ml @ 25 mls/hr IVPB Q8HR [facility] Rx# :[id number] Sodium Chloride 0.9% 1, 100 000 ml @ 100 mls/hr IV . Q10H [facility] Rx#:[id number] Oral 525 Output: Urine 555 Other: Voiding Method Indwelling Catheter Indwelling Catheter Weight 102.693 kg PHYSICAL EXAM: VITAL SIGNS: [As above] GENERAL: Sitting up in bed, withdrawn, agitated HEENT: Normocephalic Conjunctivae normal. eyes normal. NECK: Supple, No JVD. CARDIOVASCULAR: S1, S2 regular.. No murmur RESPIRATION: Equal air entry Breath sounds diminished in the bases. No rhonchi or crackles. No bronchial breathing. ABDOMEN: Soft, nontender . No guarding. no masses palpable. No ascites, No hepatosplenomegaly.Bowel sounds heard. LEGS: No edema. no swelling PSYCHIATRY: Alert and oriented X3, mood and affect normal. NERVOUS SYSTEM: Cranial N 2-12 grossly normal. No focal deficits. Strength and sensation grossly intact.. Skin: Multiple tattoos, chronic nonhealing ulceration of right medial ankle with fat layer exposure, positive DP pulse Results CBC & Chem 7: 02/21/23 02:24 02/21/23 02:07 Labs: Abnormal Lab Results - Last 24 Hours (Table) 02/21/23 02/21/23 02/21/23 Range/Units 01:49 02:07 02:07 Plt Count (150-450) k/uL Lymphocytes # (1.0-4.8) k/uL BUN 21 H (9-20) mg/dL Creatinine 0.61 L (0.66-1.25) mg/dL Glucose 109 H (74-99) mg/dL POC Glucose (mg/dL) 122 H (70-110) mg/dL Total Bilirubin 1.5 H (0.2-1.3) mg/dL ALT 55 H (4-49) U/L Alkaline Phosphatase 136 H (38-126) U/L Creatine Kinase (55-170) U/L Urine Protein (Negative) Urine Ketones (Negative) Urine Blood (Negative) Urine RBC (0-5) /hpf Hyaline Casts (0-2) /lpf Urine Mucus (None) /hpf Ur Oxycodone Screen Detected H (NotDetected) U Tricyclic Antidepress Detected H (NotDetected) Urine Cocaine Screen Detected H (NotDetected) U Marijuana (THC) Screen Detected H (NotDetected) 02/21/23 02/21/23 02/21/23 Range/Units 02:24 02:24 06:58 Plt Count 122 L (150-450) k/uL Lymphocytes # 0.9 L (1.0-4.8) k/uL BUN (9-20) mg/dL Creatinine (0.66-1.25) mg/dL Glucose (74-99) mg/dL POC Glucose (mg/dL) (70-110) mg/dL Total Bilirubin (0.2-1.3) mg/dL ALT (4-49) U/L Alkaline Phosphatase (38-126) U/L Creatine Kinase 38 L (55-170) U/L Urine Protein 1+ H (Negative) Urine Ketones Trace H (Negative) Urine Blood Trace H (Negative) Urine RBC 26 H (0-5) /hpf Hyaline Casts 3 H (0-2) /lpf Urine Mucus Moderate H (None) /hpf Ur Oxycodone Screen (NotDetected) U Tricyclic Antidepress (NotDetected) Urine Cocaine Screen (NotDetected) U Marijuana (THC) Screen (NotDetected) Thrombosis Risk Factor Assmnt - Choose All That Apply Any of the Below Risk Factors Present?: Yes Each Factor Represents 1 point: Age 41-60 years, Medical pt on bed rest Thrombosis Risk Factor Assessment Total Risk Factor Score: 2 Thrombosis Risk Factor Assessment Level: Low Risk Assessment and Plan Assessment: Intentional overdose, polysubstance abuse, toxicology screen detected oxycodone, tricyclic antidepressants, cocaine, marijuana Possible left lower lobe aspiration pneumonia Acute hypoxic respiratory failure secondary to the above Schizophrenia Depression Anxiety Chronic pain syndrome, on oral Dilaudid, Neurontin and Flexeril as per his pain specialist Chronic nonhealing right medial ankle ulceration with fat layer exposure Thrombocytopenia Nicotine dependence Plan: Continue on current medication regime ,monitoring and symptomatic treatment. IV Zosyn, IV fluid hydration. Maintain suicide precautions/director safety. Psychiatry consult in place with recommendations pending. Wound care as per wound care team. Prognosis guarded given multiple complex medical issues. The impression and plan of care has been dictated as directed. : I performed a history and examination of this patient, discussed the same with the dictator. I agree with the dictator's note ,documented as a scribe. Any additional findings or plans will be noted.
[2023-02-21] MEDS: HEPARIN SODIUM,PORCINE 5,000 UNIT/ML 1 ML VIAL SQ SCH (20:19)
[2023-02-21] MEDS: PALIPERIDONE 3 MG TAB.ER.24 PO SCH (20:19)
[2023-02-22] MEDS: SODIUM CHLORIDE 0.9% 1,000 ML IV SCH ×3 (00:47→21:16)
[2023-02-22 07:31] LABS: Basophils % (A) 1 %; Eosinophils # (A) 0.2 k/uL (0-0.7); Eosinophils % (A) 3 %; HCT 35.2 % (39.0-53.0); HGB 12.4 gm/dL (13.0-17.5); Lymphocytes # (A) 0.5 k/uL (1.0-4.8); Lymphocytes % (A) 11 %; MCH 32.5 pg (25.0-35.0); MCHC 35.3 g/dL (31.0-37.0); MCV 91.9 fL (80.0-100.0); Mean Platelet Volume 9.7; Monocytes # (A) 0.5 k/uL (0-1.0); Monocytes % (A) 11 %; Neutrophils # (A) 3.5 k/uL (1.3-7.7); Neutrophils % (A) 73 %; Platelet Count 118 k/uL (150-450); RBC 3.83 m/uL (4.30-5.90); WBC 4.9 k/uL (3.8-10.6)
[2023-02-22] MEDS: PIPERACILLIN-TAZOBACTAM 3.375 GM in SODIUM CHLORIDE 0.9% 100 ML IVPB SCH ×3 (07:52→23:28)
[2023-02-22 07:54] LABS: African American GFR (CKD) >90 (>60 ml/min/1.73 sqM); Anion Gap 4 mmol/L; Blood Urea Nitrogen 13 mg/dL (9-20); Calcium 8.2 mg/dL (8.4-10.2); Carbon Dioxide 24 mmol/L (22-30); Chloride 109 mmol/L (98-107); Glucose 97 mg/dL (74-99); Non-African American GFR(CKD) >90 (>60 ml/min/1.73 sqM); Sodium 137 mmol/L (137-145)
[2023-02-22 07:59] LABS: Potassium 4.6 mmol/L (3.5-5.1)
--- NOTE | 2023-02-22 08:54 | XR ---
EXAMINATION TYPE: XR chest 1V portable DATE OF EXAM: 02/22/2023 COMPARISON: 02/21/2023 HISTORY: Cough TECHNIQUE: Single frontal view of the chest is obtained. FINDINGS: A left lower lobe joints right lung clear. No interstitial edema or pneumothorax. Heart si ze prominent. No overt failure. Underlying emphysematous changes suspected IMPRESSION: Left lower lobe infiltrate and small left for effusion. Findings stable
[2023-02-22] MEDS: HEPARIN SODIUM,PORCINE 5,000 UNIT/ML 1 ML VIAL SQ SCH ×2 (09:22→20:16)
--- NOTE | 2023-02-22 09:27 | P.PN ---
Subjective Progress Note Date: 02/22/23 I am seeing this patient today 02/21/2023 in new consultation in the emergency room, trauma [place]. The patient presented with an intentional overdose. Little is known about the patient's past medical history. Patient is currently in a stuporous state and unable to participate in HPI. Apparently, the patient was in an argument with his girlfriend when he took a handful of pills. This was apparently witnessed, and was approximately 30 minutes before arrival. He is prescribed hydromorphone 4 mg tabs, gabapentin 300 mg tabs, and Flexeril 10 mg tabs. He reportedly follows with a pain clinic. It is unclear how many pills he took of each. He did not receive activated charcoal. On arrival to the e mergency room, he was found to have gun in his underwear, he is petitioned for the suicide attempt. He also was found to have drug paraphernalia and his coat pocket. Urinalysis was positive for oxycodone, TCAs, cocaine, and marijuana. Serum alcohol less than 10. On my examination, the patient is currently stuporous. He is breathing approximately 6-10 breaths per minute. SPO2 is 95% on room air. End-tidal CO2 40. He did receive 3 doses of Narcan in the ER, and is currently on a Narcan infusion at 0.4 mg per hour. Poison control is involved. CBC on arrival was unremarkable despite some mild thrombocytopenia. BMP on arrival showed a sodium 138, potassium 3.8, chloride 103, serum bicarb 23, BUN 21, creatinine 0.61, glucose 109. LFTs mildly elevated. Patient did receive a 2 L normal saline bolus in the emergency room. Normal saline is infusing at 100 ML's per hour. He is making adequate urine output and has an indwelling urinary catheter. Urine appears concentrated. A chest x-ray showed a patchy consolidation of the left lower lobe which may be due to aspiration or infection. Patient is afebrile. No reports of emesis or aspiration. EKG does not show any significant QT prolongation. Patient will be monitored in the intensive care unit. His respiratory status is borderline, and may require intubation if his respiratory depression worsens. Prognosis is guarded. On today's evaluation of 02/22/2023, the patient is awake and alert and communicating. He is currently off Narcan drip. The patient was seen by psychiatry. The patient was diagnosed having his schizoaffective disorder and the patient met criteria for inpatient psychiatric admission. Meanwhile, he was started on Invega 3 mg at bedtime. He is on IV fluids at 100 mL an hour. He is on oxygen at 2 L with a pulse ox of 94%. A repeat chest x-ray was done today regarding his aspiration pneumonia and the patient continues to have some limited infiltration and the left lower lobe with silhouetting of the left cardiac border suggestive of underlying pneumonia. Findings of essentially stable for now. His tolerating diet. No nausea. No emesis. No chest pain. No altered mentation. The risk was at 4.9 with a hemoglobin 12.4 and the BUN is at 13 with a creatinine of 0.5. Troponins are negative. No other significant events overnight. Objective - Vital Signs Vital signs: Vital Signs Temp 99.1 F 02/22/23 09:00 Pulse 81 02/22/23 09:00 Resp 17 02/22/23 09:00 BP 120/67 02/22/23 09:00 Pulse Ox 94 L 02/22/23 09:00 FiO2 Intake & Output 02/21/23 02/22/23 02/22/23 18:59 06:59 18:59 Intake Total 2187.5 1600 350 Output Total 905 1025 295 Balance 1282.5 575 55 Weight 103.5 kg Intake: IV 1100 1300 350 Piperacillin-Tazobactam 3 100 50 .375 gm In Sodium Chloride 0.9% 100 ml @ 25 mls/hr IVPB Q8HR [facility] Rx# :[id number] Sodium Chloride 0.9% 1, 1100 1200 300 000 ml @ 100 mls/hr IV . Q10H [facility] Rx#:[id number] Intake, IV Titration 562.5 Amount Naloxone (Mdv) 2 mg In 262.5 Sodium Chloride 0.9% 250 ml @ 0.4 MG/HR 50 mls/hr IV .Q5H [facility] Rx#:[id number] Piperacillin-Tazobactam 3 200 .375 gm In Sodium Chloride 0.9% 100 ml @ 25 mls/hr IVPB Q8HR [facility] Rx# :[id number] Sodium Chloride 0.9% 1, 100 000 ml @ 100 mls/hr IV . Q10H [facility] Rx#:[id number] Oral 525 300 Output: Urine 905 1025 295 Other: Voiding Method Indwelling Catheter Indwelling Catheter - Exam GENERAL EXAM: Stuporous, 57-year-old white male, currently awake and alert on 2 L of oxygen by nasal cannula HEAD: Normocephalic and atraumatic EYES: Pupils are 3 mm bilaterally and responsive to light NOSE: Clear with pink turbinates. THROAT: No erythema or exudates. Edentulous. Dry mucous membranes. NECK: No masses, no JVD. CHEST: No chest wall deformity. LUNGS: He is sonorous. Equal air entry with no crackles, wheeze, rhonchi or dullness. CVS: S1 and S2 normal with no audible murmur, regular rhythm. No extra heart sounds ABDOMEN: No hepatosplenomegaly, active bowel sounds, no guarding or rigidity. There is a reducible abdominal hernia SPINE: No scoliosis or deformity SKIN: There is a right medial ulceration measuring approximately 1.25 cm x 1.25 cm and 0.5 cm deep, possible venous stasis ulcer CENTRAL NERVOUS SYSTEM: He is largely unable to participate with an in-depth neurological examination. He is stuporous. EXTREMITIES: There is no peripheral edema, clubbing, or cyanosis. Peripheral pulses are intact. - Labs CBC & Chem 7: 02/22/23 07:09 02/22/23 07:09 Labs: Abnormal Lab Results - Last 24 Hours (Table) 02/22/23 02/22/23 Range/Units 07:09 07:09 RBC 3.83 L (4.30-5.90) m/uL Hgb 12.4 L (13.0-17.5) gm/dL Hct 35.2 L (39.0-53.0) % Plt Count 118 L (150-450) k/uL Chloride 109 H (98-107) mmol/L Creatinine 0.52 L (0.66-1.25) mg/dL Calcium 8.2 L (8.4-10.2) mg/dL Assessment and Plan Assessment: Intentional overdose, patient reportedly took a handful of unknown pills. He is prescribed hydromorphone 4 mg tabs, gabapentin 300 mg tabs, and Flexeril 10 mg tabs. Urine toxicology screen positive for oxycodone, TCAs, cocaine, and marijuana. Possible aspiration pneumonia/pneumonitis, chest x-ray demonstrates a left lower lobe infiltrate. Chest x-ray shows stable left-sided pulmonary infiltrate Acute hypoxic respiratory failure currently on 2 L of oxygen by nasal cannula Polysubstance abuse Schizoaffective disorder/depression with suicide intention Right medial ankle wound Thrombocytopenia Plan Wean down FiO2 as tolerated and consider room air oxygen Continue IV Zosyn Incentive spirometer Patient is currently off Narcan Patient is currently on Invega The patient meets inpatient criteria for psychiatric treatment Provide diet 24 hour sitter the bedside He may go to a regular medical floor with a sitter and ultimately the patient will need inpatient psychiatric treatment.
--- NOTE | 2023-02-22 11:13 | P.DS ---
Providers Date of admission: 02/21/23 05:14 Expected date of discharge: 02/22/23 Attending physician: Dewayne Lara MD Consults: 02/21/23 05:14 Consult Physician Stat Consulting Provider: Fredy Cannon Consult Reason/Comments: intentional overdose Do you want consulting provider notified?: Already Contacted 02/21/23 05:31 Consult Physician Urgent Consulting Provider: Nico Henson Consult Reason/Comments: intentional overdose Do you want consulting provider notified?: Yes Primary care physician: Priscilla Foster Hospital Course: Final Diagnoses: Intentional overdose, polysubstance abuse, toxicology screen detected oxycodone, tricyclic antidepressants, cocaine, marijuana Possible left lower lobe aspiration pneumonia Acute hypoxic respiratory failure secondary to the above, O2 weaned off Schizophrenia Depression Anxiety Chronic pain syndrome, on oral Dilaudid, Neurontin and Flexeril as per his pain specialist Chronic nonhealing right medial ankle ulceration with fat layer exposure Thrombocytopenia Nicotine dependence Hospital course:This is a 57-year-old gentleman with past medical history significant for schizoaffective disorder, anxiety, depression, reports ADHD, chronic pain syndrome and multiple other medical issues admitted with intentional overdose. Moved to [place] one year ago from [place]. Agitated, expresses that he cannot find a doctor to prescribe him the Xanax, Adderall and amitriptyline that his [place] psychiatrist had been prescribing. Also reports he used to be on testosterone. Currently on Dilaudid, Neurontin and Flexeril per pain specialist. Reports minimal sleep or the last 4 days, worsening agitation depression ,anxiety accompanied by unending racing thoughts. Proceeded to have a argument with his girlfriend and took a handful of pills in front of her. When asked if this was an intentional overdose, patient stated that he is tired of everyone "Fu with him." ER reports, patient arrived with a firearm in his underwear and drug paraphernalia in his coat pockets. Toxicology screen detected oxycodone, tricyclic antidepressants, cocaine, marijuana and serum alcohol less than 10. Poison control was notified ,patient received 3 doses of Narcan and placed on a Narcan drip, received 2 L IV fluid bolus and placed on IV fluid hydration. QT currently at 0.36. Denies chest pain, palpitations or shortness of breath. Chest x-ray reporting patchy left lateral lower lobe consolidation. IV Zosyn initiated. Denies nausea ,vomiting. Denies syncope. On admission respiratory rate dropped into the single digits, maintaining O2 sats in high 80s to low 90s on room air with the entire a CO2 of 40. Patient currently maintaining O2 sats in the low 90s on room air, and tidal CO2 37. Respiratory rate 16-25. Afebrile, normal WBC, hemoglobin 13.5, MCV 92, platelets 122, sodium 138, potassium 3.8, bicarbonate 23, BUN 21, creatinine 0.61, glucose 109, total bili 1.5, AST 55, alk phos 136, creatinine kinase 38. UA. Negative nitrates, moderate mucus. Significant clinical improvement. O2 weaned off. Denies any chest pain, palpitations or shortness of breath. Denies any sweats or chills. Denies any nausea vomiting or diarrhea. Denies any abdominal tenderness. Suicide precautions maintained. No QT prolongation. Patient is medically cleared for discharge to inpatient mental health unit. The impression and plan of care has been dictated as directed. : I performed a history and examination of this patient, discussed the same with the dictator. I agree with the dictator's note ,documented as a scribe. Any additional findings or plans will be noted. Patient Condition at Discharge: Stable Plan - Discharge Summary Discharge Rx Participant: No New Discharge Prescriptions: New haloperidoL [Haldol] 5 mg PO Q6HR PRN tab PRN Reason: Agitation Paliperidone [Invega] 3 mg PO HS tab Amoxic-Pot Clav 875-125Mg [Augmentin 875-125] 1 tab PO BID 7 Days #14 tab Continue Omeprazole [PriLOSEC] 20 mg PO DAILY Budesonide/Formoterol Fumarate [Symbicort 80-4.5 Mcg Inhaler] 1 puff INHALATION RT-BID Albuterol Sulfate [Albuterol Sulfate Hfa] 2 puff PO RT-Q4H PRN PRN Reason: Shortness Of Breath Discontinued Cyclobenzaprine [Flexeril] 10 mg PO TID Gabapentin [Neurontin] 300 mg PO TID HYDROmorphone [Dilaudid] 4 mg PO TID PRN PRN Reason: Pain Discharge Medication List Albuterol Sulfate [Albuterol Sulfate Hfa] 2 puff PO RT-Q4H PRN 02/21/23 [History] Budesonide/Formoterol Fumarate [Symbicort 80-4.5 Mcg Inhaler] 1 puff INHALATION RT-BID 02/21/23 [History] Omeprazole [PriLOSEC] 20 mg PO DAILY 02/21/23 [History] Amoxic-Pot Clav 875-125Mg [Augmentin 875-125] 1 tab PO BID 7 Days #14 tab 02/22/23 [Rx] Paliperidone [Invega] 3 mg PO HS tab 02/22/23 [Rx] haloperidoL [Haldol] 5 mg PO Q6HR PRN tab 02/22/23 [Rx] Follow up Appointment(s)/Referral(s): Nico Henson MD [Medical Doctor] - 1 Week Dewayne Lara MD [STAFF PHYSICIAN] - 1 Week (after dc from [facility]) Activity/Diet/Wound Care/Special Instructions: Discharge to inpatient mental health unit Discharge Disposition: TRANSFER TO PSYCH HOSP/UNIT
[2023-02-22] MEDS: ACETAMINOPHEN TAB 325 MG TAB PO PRN (20:16)
[2023-02-22] MEDS: PALIPERIDONE 3 MG TAB.ER.24 PO SCH (20:16)
[2023-02-23] MEDS: SODIUM CHLORIDE 0.9% 1,000 ML IV SCH (05:33)
[2023-02-23] MEDS: PIPERACILLIN-TAZOBACTAM 3.375 GM in SODIUM CHLORIDE 0.9% 100 ML IVPB SCH (09:14)
[2023-02-23] MEDS: HEPARIN SODIUM,PORCINE 5,000 UNIT/ML 1 ML VIAL SQ SCH (09:15)
[2023-02-23] MEDS ORDERED: polyethylene glycoL 3350 17 GM POWD.PACK PO STA (09:33)
--- NOTE | 2023-02-23 11:07 | XR ---
EXAMINATION TYPE: XR chest 1V DATE OF EXAM: 02/23/2023 COMPARISON: 02/22/2023 HISTORY: Chest pain TECHNIQUE: Single frontal view of the chest is obtained. FINDINGS: Large area of masslike consolidation left lower lobe similar to prior exam. Right lung kiki ar. Underlying COPD. Mildly prominent. No overt failure. Hypertrophic change of the AC joints. IMPRESSION: Large area of masslike consolidation left lower lobe pneumonia otherwise consider neopl asm
[2023-02-23] MEDS ORDERED: IPRATROPIUM-ALBUTEROL 3 ML NEB INHALATION SCH (12:00)
[2023-02-23] MEDS: ACETAMINOPHEN TAB 325 MG TAB PO PRN (12:09)
[2023-02-23 12:14] VITALS: BP 131/74; PULSE 89; RESP 18; TEMP 97.7
--- NOTE | 2023-02-23 12:37 | P.PN ---
Subjective Progress Note Date: 02/23/23 I am seeing this patient today 02/21/2023 in new consultation in the emergency room, trauma [place] 1. The patient presented with an intentional overdose. Little is known about the patient's past medical history. Patient is currently in a stuporous state and unable to participate in HPI. Apparently, the patient was in an argument with his girlfriend when he took a handful of pills. This was apparently witnessed, and was approximately 30 minutes before arrival. He is prescribed hydromorphone 4 mg tabs, gabapentin 300 mg tabs, and Flexeril 10 mg tabs. He reportedly follows with a pain clinic. It is unclear how many pills he took of each. He did not receive activated charcoal. On arrival to the e mergency room, he was found to have gun in his underwear, he is petitioned for the suicide attempt. He also was found to have drug paraphernalia and his coat pocket. Urinalysis was positive for oxycodone, TCAs, cocaine, and marijuana. Serum alcohol less than 10. On my examination, the patient is currently stuporous. He is breathing approximately 6-10 breaths per minute. SPO2 is 95% on room air. End-tidal CO2 40. He did receive 3 doses of Narcan in the ER, and is currently on a Narcan infusion at 0.4 mg per hour. Poison control is involved. CBC on arrival was unremarkable despite some mild thrombocytopenia. BMP on arrival showed a sodium 138, potassium 3.8, chloride 103, serum bicarb 23, BUN 21, creatinine 0.61, glucose 109. LFTs mildly elevated. Patient did receive a 2 L normal saline bolus in the emergency room. Normal saline is infusing at 100 ML's per hour. He is making adequate urine output and has an indwelling urinary catheter. Urine appears concentrated. A chest x-ray showed a patchy consolidation of the left lower lobe which may be due to aspiration or infection. Patient is afebrile. No reports of emesis or aspiration. EKG does not show any significant QT prolongation. Patient will be monitored in the intensive care unit. His respiratory status is borderline, and may require intubation if his respiratory depression worsens. Prognosis is guarded. On today's evaluation of 02/22/2023, the patient is awake and alert and communicating. He is currently off Narcan drip. The patient was seen by psychiatry. The patient was diagnosed having his schizoaffective disorder and the patient met criteria for inpatient psychiatric admission. Meanwhile, he was started on Invega 3 mg at bedtime. He is on IV fluids at 100 mL an hour. He is on oxygen at 2 L with a pulse ox of 94%. A repeat chest x-ray was done today regarding his aspiration pneumonia and the patient continues to have some limited infiltration and the left lower lobe with silhouetting of the left cardiac border suggestive of underlying pneumonia. Findings of essentially stable for now. His tolerating diet. No nausea. No emesis. No chest pain. No altered mentation. The risk was at 4.9 with a hemoglobin 12.4 and the BUN is at 13 with a creatinine of 0.5. Troponins are negative. No other significant events overnight. On today's evaluation of 02/23/2023, the patient is having some cough and congestion and some discomfort along the left side of the chest. We suspected a spiration pneumonia and the patient was kept on IV Zosyn. Otherwise, is on room air oxygen with a pulse ox of 96%. Is communicating. He has been accepted to psych floor transfer for inpatient psychiatric treatment regarding his depression/schizoaffective disorder/suicide. His Covid 19 testing was negative. A repeat chest x-ray was done and the patient has a large area consolidation left lower lobe, nevertheless, this area is improving compared to the earlier chest x-ray from 02/22/2023. The right lung remains clear. Objective - Vital Signs Vital signs: Vital Signs Temp 98.6 F 02/23/23 08:00 Pulse 94 02/23/23 08:00 Resp 22 02/23/23 08:00 BP 145/72 02/23/23 08:00 Pulse Ox 92 L 02/23/23 08:00 FiO2 Intake & Output 02/22/23 02/23/23 02/23/23 18:59 06:59 18:59 Intake Total 925 50 240 Output Total 645 125 Balance 280 -75 240 Intake: IV 675 50 Piperacillin-Tazobactam 3 275 .375 gm In Sodium Chloride 0.9% 100 ml @ 25 mls/hr IVPB Q8HR [facility] Rx# :[id number] Sodium Chloride 0.9% 1, 400 50 000 ml @ 100 mls/hr IV . Q10H [facility] Rx#:[id number] Oral 250 240 Output: Urine 645 125 Other: Voiding Method Indwelling Catheter Toilet Toilet Urinal Urinal # Voids 1 1 1 - Exam GENERAL EXAM: Stuporous, 57-year-old white male, currently awake and alert on r oom air oxygen on today's evaluation HEAD: Normocephalic and atraumatic EYES: Pupils are 3 mm bilaterally and responsive to light NOSE: Clear with pink turbinates. THROAT: No erythema or exudates. Edentulous. Dry mucous membranes. NECK: No masses, no JVD. CHEST: No chest wall deformity. LUNGS: He is sonorous. Equal air entry with no crackles, wheeze, rhonchi or dullness. CVS: S1 and S2 normal with no audible murmur, regular rhythm. No extra heart sounds ABDOMEN: No hepatosplenomegaly, active bowel sounds, no guarding or rigidity. There is a reducible abdominal hernia SPINE: No scoliosis or deformity SKIN: There is a right medial ulceration measuring approximately 1.25 cm x 1.25 cm and 0.5 cm deep, possible venous stasis ulcer CENTRAL NERVOUS SYSTEM: He is largely unable to participate with an in-depth neurological examination. He is stuporous. EXTREMITIES: There is no peripheral edema, clubbing, or cyanosis. Peripheral pulses are intact. - Labs CBC & Chem 7: 02/22/23 07:09 02/22/23 07:09 Labs: Abnormal Lab Results - Last 24 Hours (Table) 02/22/23 Range/Units 07:09 Lymphocytes # 0.5 L (1.0-4.8) k/uL Assessment and Plan Assessment: Intentional overdose, patient reportedly took a handful of unknown pills. He is prescribed hydromorphone 4 mg tabs, gabapentin 300 mg tabs, and Flexeril 10 mg tabs. Urine toxicology screen positive for oxycodone, TCAs, cocaine, and marijuana. Clinically recovered and the patient is awake and alert and communicating. He has been accepted to go to inpatient psychiatric treatment for depression/suicide/schizoaffective disorder aspiration pneumonia/pneumonitis, chest x-ray demonstrates a left lower lobe infiltrate. Chest x-ray shows stable left-sided pulmonary infiltrate and the patient continues to have a dense consolidation left lower lobe and based on my comparison, there is some interval improvement in the left lower lobe consolidation. The patient continues to be symptomatic. Acute hypoxic respiratory failure currently on 2 L of oxygen by nasal cannula, wean down to room air oxygen Polysubstance abuse Schizoaffective disorder/depression with suicide intention Right medial ankle wound Thrombocytopenia Plan Start the patient DuoNeb nebulized treatments 4 times a day Wean down FiO2 as tolerated and consider room air oxygen Continue IV Zosyn as the patient continues to have an extensive left lower lobe consolidation/pneumonia Incentive spirometer Patient is currently off Narcan Patient is currently on Invega The patient meets inpatient criteria for psychiatric treatment Provide diet 24 hour sitter the bedside He may go to a regular medical floor with a sitter and ultimately the patient will need inpatient psychiatric treatment as long as the patient is able to continue IV Zosyn and continue updrafts.
== END 2023-02-23 13:46 | DRG 917 ==
LOC: EC 01:38 → 2SICU 05:14 → 3SCARD 02-22 21:30
PROVIDERS: ADMIT Family Medicine; ATTEND Family Medicine
DX: T40.2X2A Poisoning by other opioids, intentional self-harm, initial encounter (principal); J69.0 Pneumonitis due to inhalation of food and vomit; J96.01 Acute respiratory failure with hypoxia; L97.312 Non-pressure chronic ulcer of right ankle with fat layer exposed; T42.6X2A Poisoning by other antiepileptic and sedative-hypnotic drugs, intentional self-harm, initial encounter; T48.1X2A Poisoning by skeletal muscle relaxants [neuromuscular blocking agents], intentional self-harm, initial encounter; D69.6 Thrombocytopenia, unspecified; F25.9 Schizoaffective disorder, unspecified; F17.210 Nicotine dependence, cigarettes, uncomplicated; G89.29 Other chronic pain; F32.A Depression, unspecified; F41.9 Anxiety disorder, unspecified; F90.9 Attention-deficit hyperactivity disorder, unspecified type; G89.4 Chronic pain syndrome; Z79.899 Other long term (current) drug therapy; W57.XXXA Bitten or stung by nonvenomous insect and other nonvenomous arthropods, initial encounter; Z79.51 Long term (current) use of inhaled steroids; Z20.822 Contact with and (suspected) exposure to COVID-19; Z71.6 Tobacco abuse counseling; Z71.51 Drug abuse counseling and surveillance of drug abuser; L98.492 Non-pressure chronic ulcer of skin of other sites with fat layer exposed
CPT/HCPCS: 36415; 71045; 80048; 80053; 80143; 80179; 80306; 80320; 81001; 82550; 84484; 85025; 87635; 93005; 94640; 94760; 96361; 96365; 96366; 96375; 96376; 99291

== ENCOUNTER 2023-02-23 13:47 | Inpatient (IN) | payer MEDICARE, MEDICAID ==
[2023-02-23] MEDS ORDERED: MAGNESIUM HYDROXIDE 2,400 MG/30 ML CUP PO PRN (14:42)
[2023-02-23] MEDS ORDERED: MAG HYDROX/AL HYDROX/SIMETH 30 ML CUP PO PRN (14:42)
[2023-02-23] MEDS ORDERED: ALBUTEROL INHALER 60 PUFF/8 GM INHALER (MHU) INHALATION PRN (14:45)
[2023-02-23] MEDS ORDERED: LORazepam 2 MG/ML INJ IM PRN (14:47)
[2023-02-23] MEDS ORDERED: SYMBICORT 80-4.5 MCG INHALER INHALATION SCH (20:00)
[2023-02-23] MEDS: AMOXIC-POT CLAV 875-125MG 1 EACH TAB PO SCH (20:25)
[2023-02-23] MEDS: LORazepam 1 MG TAB PO PRN (20:26)
[2023-02-23] MEDS: haloperidoL 5 MG TAB PO PRN (20:26)
[2023-02-23] MEDS: SYMBICORT 80-4.5 MCG INHALER (MHU) INHALATION SCH (20:29)
[2023-02-23] MEDS: PALIPERIDONE 3 MG TAB.ER.24 PO SCH (20:30)
[2023-02-24] MEDS: PANTOPRAZOLE 40 MG TABLET PO SCH (08:40)
[2023-02-24] MEDS: NICOTINE 14MG/24HR PATCH TRANSDERM SCH (08:40)
[2023-02-24] MEDS: AMOXIC-POT CLAV 875-125MG 1 EACH TAB PO SCH ×2 (08:40→20:51)
[2023-02-24] MEDS: SYMBICORT 80-4.5 MCG INHALER (MHU) INHALATION SCH ×2 (08:41→20:47)
[2023-02-24 12:09] LABS: HGB 13.7 gm/dL (13.0-17.5); MCH 31.1 pg (25.0-35.0); MCHC 33.4 g/dL (31.0-37.0); MCV 93.2 fL (80.0-100.0); Mean Platelet Volume 9.1; Platelet Count 111 k/uL (150-450); RDW 13.8 % (11.5-15.5); WBC 5.2 k/uL (3.8-10.6)
--- NOTE | 2023-02-24 12:20 | P.CONS ---
History of Present Illness - Reason for Consult Consult date: 02/24/23 - Chief Complaint Intentional overdose - History of Present Illness * 57-year-old gentleman with past medical history significant for depression, suicidal ideation, she's affective disorder, polysubstance abuse, was admitted to inpatient for intentional overdose * While an inpatient unit patient was seen by pulmonary medicine and internal medicine. Patient was also seen by psychiatry and recommended admission to inpatient behavioral health unit * While on inpatient floor patient was treated for aspiration pneumonia and received oral antibiotics and upon discharge patient was transitioned to A ugmentin. Patient was treated with IV Zosyn while inpatient * Patient is seen in behavioral health unit alert and oriented 4, CBC obtained showed normal WBC count * Admission medication reconciliation reviewed and reconciled, patient on Augmentin to complete course continue patient on albuterol and Symbicort as well REVIEW OF SYSTEMS: CONSTITUTIONAL: No fever, no malaise, no fatigue. HEENT: No recent visual problems or hearing problems. Denied any sore throat. CARDIOVASCULAR: No chest pain, orthopnea, PND, no palpitations, no syncope. PULMONARY: No shortness of breath, no cough, no hemoptysis. GASTROINTESTINAL: No diarrhea, no nausea, no vomiting, no abdominal pain. NEUROLOGICAL: No headaches, no weakness, no numbness. HEMATOLOGICAL: Denies any bleeding or petechiae. GENITOURINARY: Denies any burning micturition, frequency, or urgency. MUSCULOSKELETAL/RHEUMATOLOGICAL: Denies any joint pain, swelling, or any muscle pain. ENDOCRINE: Denies any polyuria or polydipsia. PHYSICAL EXAMINATION: GENERAL: The patient is alert and oriented x3, not in any acute distress. Well developed, well nourished. HEENT: Pupils are round and equally reacting to light. EOMI. No scleral icterus. No conjunctival pallor. Normocephalic, atraumatic. No pharyngeal erythema. No thyromegaly. CARDIOVASCULAR: S1 and S2 present. No murmurs, rubs, or gallops. PULMONARY: Chest is clear to auscultation, no wheezing or crackles. ABDOMEN: Soft, nontender, nondistended, normoactive bowel sounds. No palpable organomegaly. MUSCULOSKELETAL: No joint swelling or deformity. EXTREMITIES: No cyanosis, clubbing, or pedal edema. NEUROLOGICAL: Gross neurological examination did not reveal any focal deficits. SKIN: No rashes. Past Medical History Past Medical History: GERD/Reflux Additional Past Medical History / Comment(s): . History of Any Multi-Drug Resistant Organisms: None Reported Past Surgical History: Back Surgery Additional Past Surgical History / Comment(s): . Past Anesthesia/Blood Transfusion Reactions: No Reported Reaction Past Psychological History: Anxiety, Depression, Schizophrenia Smoking Status: Current every day smoker Past Alcohol Use History: None Reported Past Drug Use History: None Reported Additional Drug Use History / Comment(s): pt with positive drug screen Medications and Allergies Home Medications Medication Instructions Recorded Confirmed Type Albuterol Sulfate [Albuterol 2 puff INHALATION RT-Q4H PRN 02/21/23 02/23/23 History Sulfate Hfa] Budesonide/Formoterol Fumarate 1 puff INHALATION RT-BID 02/21/23 02/23/23 History [Symbicort 80-4.5 Mcg Inhaler] Omeprazole [PriLOSEC] 20 mg PO DAILY 02/21/23 02/23/23 History Amoxic-Pot Clav 875-125Mg 1 tab PO BID 7 Days #14 tab 02/22/23 02/23/23 Rx [Augmentin 875-125] Paliperidone [Invega] 3 mg PO HS tab 02/22/23 02/23/23 Rx haloperidoL [Haldol] 5 mg PO Q6HR PRN tab 02/22/23 02/23/23 Rx Allergies Allergy/AdvReac Type Severity Reaction Status Date / Time No Known Allergies Allergy Verified 02/23/23 14:53 Physical Exam Vitals: Vital Signs Temp Pulse Resp BP Pulse Ox 02/24/23 06:43 97.4 F L 87 13 126/59 02/23/23 15:20 97.6 F 80 16 132/65 93 L Intake and Output 02/23/23 02/24/23 02/24/23 22:59 06:59 14:59 Other: Weight 99.96 kg Results CBC & Chem 7: 02/24/23 11:20 Labs: Abnormal Lab Results - Last 24 Hours (Table) 02/24/23 Range/Units 11:20 Plt Count 111 L (150-450) k/uL Assessment and Plan Assessment: Assessment and plan * Shizoaffective/depression/suicidal ideation * Aspiration pneumonia * Right ankle wound * Polysubstance use disorder * In regards to suicidal ideation, continue management in behavioral health unit/maintain maximal safety cautions * In regards to aspiration pneumonia continue patient on Augmentin complete co urse total treated course post discharge * Continue management in behavioral health unit, albuterol and Symbicort ordered * Continue wound care while admitted and behavioral health unit * CBC and basic metabolic panel ordered * CODE STATUS is full code Time with Patient: Greater than 30
[2023-02-24] MEDS: ACETAMINOPHEN TAB 325 MG TAB PO PRN ×2 (13:20→20:50)
[2023-02-24] MEDS: LORazepam 1 MG TAB PO PRN ×2 (13:20→20:50)
[2023-02-24] MEDS: PALIPERIDONE 3 MG TAB.ER.24 PO SCH (20:50)
[2023-02-24] MEDS: haloperidoL 5 MG TAB PO PRN (20:50)
[2023-02-24 23:32] LABS: Chol/HDL Ratio 4.29 Ratio; LDL Cholesterol,Calculated 65.6 mg/dL (0.0-131.0); VLDL Calculation 18.04 mg/dL (5.00-40.00)
[2023-02-25] MEDS: PANTOPRAZOLE 40 MG TABLET PO SCH (09:25)
[2023-02-25] MEDS: AMOXIC-POT CLAV 875-125MG 1 EACH TAB PO SCH ×2 (09:25→20:11)
--- NOTE | 2023-02-25 10:19 | P.HP ---
Psychiatric H&P - . History & Physical: IDENTIFYING DATA: This patient is a 57-year-old male, currently lives in an apartment alone, she has 3 kids, he collects SSI. HPI: Per chart, patient overdosed and was admitted to the ICU. He was transferred to the mental health unit yesterday. He had a fight with his girlfriend and he overdosed in front of her. He also had hallucinations of demons talking to him. Spoke with patient in his room this morning. He states that he was having drug trouble sleeping and his head was spinning for the past 5 days. As a result he took extra medications. He states that this was not a suicide attempt. He denies suicidal ideations, homicidal ideations, past suicide attempts, substance use, command hallucinations, states that his girlfriend and family are sources of support. Reports [place] guns but states that they are locked. States that he wants to live or his family. Patient denies any suicidal or homicidal ideations intent or plan. At this time patient denies any auditory or visual hallucinations. Patient denies any flight of ideas racing thoughts and increased in goal directed behavior. PAST PSYCHIATRIC HISTORY: Patient has a a history of "schizophrenia, depression and anxiety". Patient states that he was previously on amitriptyline, Xanax and Adderall. He claims that he was previously admitted to the psychiatric unit on the mental health unit several years back. Patient denies any psychiatric outpatient follow-up currently admission however states that he used to work with a psychiatrist in [place] when he lived there. Patient denies any history of suicide attempts in the past. PMH: Cyst on kidney ALLERGIES: as per EMR CHEMICAL DEPENDENCY HISTORY: as per HPI FAMILY PSYCHIATRIC/SUBSTANCE USE HISTORY: Alcoholism in father SOCIAL HISTORY: Lives with girlfriend, on SSI MENTAL STATUS EXAM: General Appearance: Patient appears to be [] stated age is alert, [directable, and attempts to cooperate]. Patient appears to have [poor] hygiene and grooming. Behavior: Patient is seated without any agitated behavior. [] Speech: Patient's speech is [fluent and nonpressured.] Mood/Affect: Patient reports their mood is [depressed], affect is congruent and constricted. Suicidality/Homicidality: Patient denies having any homicidal ideation intent or plan. [Denies any suicidal ideations intent or plan] Perceptions: Patient denies any visual hallucinations [and denies any auditory hallucinations] Though content/process: [There is no evidence of any delusional thought content and thought process is linear and goal-directed.] Memory and concentration: AOX3, grossly intact for the purposes of this session. Can spell "WORLD" backwards Judgment and insight: [poor] Allergies Allergy/AdvReac Type Severity Reaction Status Date / Time No Known Allergies Allergy Verified 02/23/23 14:53 Vital Signs Temp 98.0 F 02/25/23 06:55 Pulse 73 02/25/23 06:55 Resp 17 02/25/23 06:55 BP 132/61 02/25/23 06:55 Pulse Ox 98 02/25/23 06:55 FiO2 Laboratory Last Values WBC 5.2 k/uL (3.8-10.6) 02/24/23 11:20 RBC 4.40 m/uL (4.30-5.90) 02/24/23 11:20 Hgb 13.7 gm/dL (13.0-17.5) 02/24/23 11:20 Hct 41.0 % (39.0-53.0) 02/24/23 11:20 MCV 93.2 fL (80.0-100.0) 02/24/23 11:20 MCH 31.1 pg (25.0-35.0) 02/24/23 11:20 MCHC 33.4 g/dL (31.0-37.0) 02/24/23 11:20 RDW 13.8 % (11.5-15.5) 02/24/23 11:20 Plt Count 111 k/uL (150-450) L 02/24/23 11:20 MPV 9.1 02/24/23 11:[address] Glu mg/dL 100 mg/dL 02/24/23 11:20 Hemoglobin A1c 5.1 % (<=6.0) 02/24/23 11:20 Triglycerides 90.20 mg/dL (0.00-149.00) 02/24/23 11:20 Cholesterol 109.00 mg/dL (0.00-200.00) 02/24/23 11:20 LDL Cholesterol, Calc 65.6 mg/dL (0.0-131.0) 02/24/23 11:20 VLDL Cholesterol, Calc 18.04 mg/dL (5.00-40.00) 02/24/23 11:20 HDL Cholesterol 25.40 mg/dL (40.00-60.00) L 02/24/23 11:20 Cholesterol/HDL Ratio 4.29 Ratio 02/24/23 11:20 TSH 2.120 mIU/L (0.465-4.680) 02/24/23 11:20 STRENGTHS/WEAKNESSES: strength is that patient has a support system, Weakness is that patient [has poor judgment and is impulsive] INTELLECT: [average] IMPRESSIONS: History given to chief writer appeared inconsistent with the history given to Dr. Henson. Was noted to have more psychotic symptoms while in the ICU Schizoaffective disorder PLAN: -Patient is admitted under [voluntary] status to MHU for stabilization of psychiatric symptoms and safety. Patient has signed [adult voluntary form and] [medication consent] and is placed in patient's chart. -Medications : continue invega 3 mg qhs, spoke with patient about starting cymbalta, patient to consider it and let chief writer know tomorrow -Ativan [and Haldol] PRN for agitation/aggression -Patient was informed of the risks, benefits and side effects of the medication and patient verbally consented to taking the medications. Patient signed med consent form and was placed in chart. -Internal Medicine consult to perform medical evaluation and physical. -SW on board for discharge planning. Encourage patient to participate in groups to work on coping skills.] [] 02/25/23 10:11
--- NOTE | 2023-02-25 10:27 | P.PN ---
Progress Note - Text Interval history: Patient was seen in his room and was directable and agreeable to speak with designer writer. States that he used to take amitriptyline and amitriptyline which helped significantly with his racing thoughts. He agreed to starting Cymbalta. At this time patient denies any suicidal or homicidal ideations intent or plan. Denies any Auditory or visual hallucinations. Patient denies any side effects from the medications and has been compliant with meds. Mental status exam: General Appearance: [Patient appears to be stated age is alert, directable, and cooperative.] Behavior: [No agitated behavior. Patient is calm and directable] Speech: Patient's speech is fluent and nonpressured. Mood/Affect: Mood is improving mildly, affect is congruent and constricted. Suicidality/Homicidality: Patient denies having any suicidal or homicidal ideation intent or plan. Perceptions: Patient denies any auditory or visual hallucinations. Though content/process: [There is no evidence of any delusional thought content and thought process is linear and goal-directed.] Memory and concentration: AOX3, grossly intact for the purposes of this session Judgment and insight: improving mildly Assessment/Plan: Continue with current diagnosis. Patient continues to meet criteria for inpatient psychiatric admission for symptom stabilization and safety. Start Cymbalta 20 mg twice a day. Off note, amitriptyline was avoided due to his overdose prior to coming in and his minimalization affect. Continue other medications Monitor for medication compliance and for any psychotropic medication side effects. Will continue to monitor ongoing response to treatment. Encouraged participation in milieu.
[2023-02-25] MEDS: SYMBICORT 80-4.5 MCG INHALER (MHU) INHALATION SCH ×2 (11:38→20:11)
[2023-02-25] MEDS: NICOTINE 14MG/24HR PATCH TRANSDERM SCH (11:39)
[2023-02-25] MEDS: LORazepam 1 MG TAB PO PRN ×2 (11:40→18:16)
[2023-02-25] MEDS: DULoxetine HCL 20 MG CAPSULE.DR PO SCH ×3 (12:32→20:11)
[2023-02-25] MEDS: ACETAMINOPHEN TAB 325 MG TAB PO PRN (18:16)
[2023-02-25] MEDS: PALIPERIDONE 3 MG TAB.ER.24 PO SCH (20:11)
[2023-02-26] MEDS: SYMBICORT 80-4.5 MCG INHALER (MHU) INHALATION SCH ×2 (08:33→20:24)
[2023-02-26] MEDS: NICOTINE 14MG/24HR PATCH TRANSDERM SCH (08:34)
[2023-02-26] MEDS: LORazepam 1 MG TAB PO PRN ×3 (08:35→20:20)
[2023-02-26] MEDS: DULoxetine HCL 20 MG CAPSULE.DR PO SCH (08:35)
[2023-02-26] MEDS: PANTOPRAZOLE 40 MG TABLET PO SCH (08:35)
[2023-02-26] MEDS: AMOXIC-POT CLAV 875-125MG 1 EACH TAB PO SCH ×2 (08:35→20:20)
[2023-02-26] MEDS: ACETAMINOPHEN TAB 325 MG TAB PO PRN ×3 (08:36→20:21)
[2023-02-26] MEDS: PALIPERIDONE 3 MG TAB.ER.24 PO SCH (20:20)
[2023-02-26] MEDS: DULoxetine HCL 30 MG CAPSULE.DR PO SCH (20:21)
[2023-02-27 06:59] VITALS: BP 140/76; PULSE 66; RESP 13; TEMP 97.6
[2023-02-27] MEDS: PANTOPRAZOLE 40 MG TABLET PO SCH (08:14)
[2023-02-27] MEDS: DULoxetine HCL 30 MG CAPSULE.DR PO SCH (08:14)
[2023-02-27] MEDS: NICOTINE 14MG/24HR PATCH TRANSDERM SCH (08:14)
[2023-02-27] MEDS: SYMBICORT 80-4.5 MCG INHALER (MHU) INHALATION SCH (08:14)
[2023-02-27] MEDS: LORazepam 1 MG TAB PO PRN (08:15)
--- NOTE | 2023-02-27 11:16 | P.PN ---
Progress Note - Text Progress Note Date: 02/26/23 Interval history: Patient was seen in the hallway and was directable and agreeable to speak with credit underwriter. States that he used to take amitriptyline, xanax and adderal. Counseled on controlled medication, as well as the risk to mental health. He agreed to starting Cymbalta. Racing thoughts are improving, and mood is improving. Mild anxiety. Claims the overdose was accidental, and he was just trying to go to sleep. At this time patient denies any suicidal or homicidal ideations intent or plan. Denies any Auditory or visual hallucinations. Patient denies any side effects from the medications and has been compliant with meds. Goal orientated to go home. Compliant with meds, with no adverse side effects Mental status exam: General Appearance: Patient appears to be bald/shaved head, trimmed short edward, several tattoos, stated age is alert, Patient appears to have fair hygiene and grooming street clothes. Behavior: No agitated behavior. Patient is calm and directable Speech: Patient's speech is fluent and nonpressured. Mood/Affect: . Patient reports their mood is getting better, affect is composed. Suicidality/Homicidality: Patient denies having any suicidal or homicidal ideation intent or plan. Perceptions: Patient denies any auditory or visual hallucinations. Though content/process: There is no evidence of any delusional thought content and thought process is linear and goal-directed. Memory and concentration: AOX3, grossly intact for the purposes of this session Judgment and insight: improving Impressions: Schizoaffective disorder Overdose on medications Plan: -Patient continues to meet criteria for inpatient psychiatric admission for symptom stabilization and safety. Patient has signed[adult voluntary form and medication consent and was placed in patient's chart. -Medications: Invega 3 mg by mouth, increase Cymbalta 30 mg by mouth twice a day, will monitor for side effects. -When necessary Ativan and Haldol for agitation/aggression. -NRT - nicotine patch -SW on board for discharge planning. Likely to discharge 02/27, if patient continues to improve and the environment is safe. Encouraged the patient to participate in milieu.
--- NOTE | 2023-02-27 11:21 | P.DS ---
Providers Date of admission: 02/23/23 13:47 Expected date of discharge: 02/27/23 Attending physician: Nico Henson MD Consults: 02/23/23 14:42 Consult Physician Routine Consulting Provider: Dewayne Lara Consult Reason/Comments: medical management Do you want consulting provider notified?: Already Contacted Primary care physician: Priscilla Foster - Discharge Diagnosis(es) (1) Schizoaffective disorder Current Visit: Yes Status: Acute Priority: High (2) Overdose of medication Current Visit: Yes Status: Acute Priority: High (3) Anxiety disorder Current Visit: Yes Status: Acute Hospital Course: Admission HPI: Admission note was completed by Dr Alcaraz "This patient is a 57-year-old male, currently lives in an apartment alone, she has 3 kids, he collects SSI. Per chart, patient overdosed and was admitted to the ICU. He was transferred to the mental health unit yesterday. He had a fight with his girlfriend and he overdosed in front of her. He also had hallucinations of demons talking to him. Spoke with patient in his room this morning. He states that he was having drug trouble sleeping and his head was spinning for the past 5 days. As a result he took extra medications. He states that this was not a suicide attempt. He denies suicidal ideations, homicidal ideations, past suicide attempts, substance use, command hallucinations, states that his girlfriend and family are sources of support. Reports [place] guns but states that they are locked. States that he wants to live or his family. Patient denies any suicidal or homicidal ideations intent or plan. At this time patient denies any auditory or visual hallucinations. Patient denies any flight of ideas racing thoughts and increased in goal directed behavior. " Hospital course: Upon admission to the unit patient was directable and agreeable to commence treatment and signed adult voluntary form . Patient got along well with other patients on the unit and followed unit protocol. Patient was compliant with the medications and denied any side effects throughout hospital course. Patient was started on paliperidone 3 mg daily at bedtime for mood stabilization/psychosis, Cymbalta 30 mg twice a day for mood/anxiety. Patient spoke of his stressors and engaged in therapy both group and individual. Patient was also seen by medical team for history and physical exam. Throughout the course of the hospitalization patient gradually improved with regards to mood, anxiety, psychosis, sleep and became more future oriented with improved insight and judgment. On the day of discharge patient denied any suicidal or homicidal ideations intent or plan denied any auditory or visual hallucinations. Patient endorsed wanting to live for his health and family. The patient denied any access to guns or weapons. Patient denied any paranoia and did not endorse any delusions. Patient does not have a significant history of substance abuse and was counseled on abstaining from all substances including alcohol and marijuana. Patient elected to do outpatient substance use treatment program through [facility]. Patient was also counseled on the medications and need for regular compliance and was encouraged to follow-up with their outpatient appointment for mental health and also for primary care. Prior to discharge a family meeting will be arranged by clinical social worker to answer any questions and ensure safety upon discharge. welfare worker to ensure that home environment is safe, no guns or weapons around. Mental status exam: General Appearance: Patient appears to be bald, several tattoos, stated age is alert, pleasant, and cooperative. Patient is in no acute distress and has improved hygiene and grooming Behavior: Patient is calmly seated without any agitated behavior. Speech: Patient's speech is fluent and nonpressured. Mood/Affect: Patient reports their mood is "better", affect is congruent and euthymic. Suicidality/Homicidality: Patient denies having any suicidal or homicidal ideation intent or plan. Perceptions: Patient denies any auditory or visual hallucinations. Though content/process: There is no evidence of any delusional thought content and thought process is linear and goal-directed. Memory and concentration: AOX3, grossly intact for the purposes of this session. Can spell "WORLD" backwards correctly. Judgment and insight: improved with guarded prognosis Impression: Schizoaffective disorder Anxiety disorder unspecified Overdose on medication Plan: -Continue with discharge today as patient has improved and stabilized psychiatrically and is not currently an imminent threat to himself and/or others. Patient will remain at chronically elevated risk for harm to self and/or others due to his impulsivity\\ -Continue medications: Paliperidone 3 mg daily at bedtime for mood stabilization/psychosis, Cymbalta 30 mg twice a day for mood/anxiety. -Patient was counseled on the need for medication compliance and appropriate follow-up at mental health and also primary care for medical issues. Patient verbalized understanding and agreed. -Social work to arrange for and conduct family meeting to ensure safety upon discharge and answer any questions/concerns. Social work also to arrange for patients follow up appointments with [facility] for psychiatric care along with follow up with primary care provider. -Patient counseled on abstaining from recreational drugs and marijuana and alcohol. Was informed/educated on the adverse effects on their physical and mental health. Patient verbally agreed and understood. -Patient was instructed to return to the hospital or seek immediate medical care if their psychiatric or medical symptoms do worsen or reoccur. Allergies Allergy/AdvReac Type Severity Reaction Status Date / Time No Known Allergies Allergy Verified 02/23/23 14:53 Laboratory Results WBC 5.2 k/uL (3.8-10.6) 02/24/23 11:20 RBC 4.40 m/uL (4.30-5.90) 02/24/23 11:20 Hgb 13.7 gm/dL (13.0-17.5) 02/24/23 11:20 Hct 41.0 % (39.0-53.0) 02/24/23 11:20 MCV 93.2 fL (80.0-100.0) 02/24/23 11:20 MCH 31.1 pg (25.0-35.0) 02/24/23 11:20 MCHC 33.4 g/dL (31.0-37.0) 02/24/23 11:20 RDW 13.8 % (11.5-15.5) 02/24/23 11:20 Plt Count 111 k/uL (150-450) L 02/24/23 11:20 MPV 9.1 02/24/23 11:[address] Glu mg/dL 100 mg/dL 02/24/23 11:20 Hemoglobin A1c 5.1 % (<=6.0) 02/24/23 11:20 Triglycerides 90.20 mg/dL (0.00-149.00) 02/24/23 11:20 Cholesterol 109.00 mg/dL (0.00-200.00) 02/24/23 11:20 LDL Cholesterol, Calc 65.6 mg/dL (0.0-131.0) 02/24/23 11:20 VLDL Cholesterol, Calc 18.04 mg/dL (5.00-40.00) 02/24/23 11:20 HDL Cholesterol 25.40 mg/dL (40.00-60.00) L 02/24/23 11:20 Cholesterol/HDL Ratio 4.29 Ratio 02/24/23 11:20 TSH 2.120 mIU/L (0.465-4.680) 02/24/23 11:20 Vital Signs Temp 97.6 F 02/27/23 06:38 Pulse 66 02/27/23 06:38 Resp 13 02/27/23 06:38 BP 140/76 02/27/23 06:38 Pulse Ox 98 02/25/23 06:55 FiO2 Patient Condition at Discharge: Stable Plan - Discharge Summary New Discharge Prescriptions: New DULoxetine HCL [Cymbalta] 30 mg PO BID 30 Days #60 cap Nicotine 14Mg/24Hr Patch [Habitrol] 1 patch TRANSDERM DAILY 14 Days #14 patch LORazepam [Ativan] 0.5 mg PO BID PRN 3 Days #6 tab PRN Reason: Anxiety Continue Paliperidone [Invega] 3 mg PO HS 30 Days #30 tab Omeprazole [PriLOSEC] 20 mg PO DAILY Budesonide/Formoterol Fumarate [Symbicort 80-4.5 Mcg Inhaler] 1 puff INHALATION RT-BID Albuterol Sulfate [Albuterol Sulfate Hfa] 2 puff INHALATION RT-Q4H PRN PRN Reason: Shortness Of Breath Discontinued haloperidoL [Haldol] 5 mg PO Q6HR PRN tab PRN Reason: Agitation Amoxic-Pot Clav 875-125Mg [Augmentin 875-125] 1 tab PO BID 7 Days #14 tab Discharge Medication List Albuterol Sulfate [Albuterol Sulfate Hfa] 2 puff INHALATION RT-Q4H PRN 02/21/23 [History] Budesonide/Formoterol Fumarate [Symbicort 80-4.5 Mcg Inhaler] 1 puff INHALATION RT-BID 02/21/23 [History] Omeprazole [PriLOSEC] 20 mg PO DAILY 02/21/23 [History] DULoxetine HCL [Cymbalta] 30 mg PO BID 30 Days #60 cap 02/27/23 [Rx] LORazepam [Ativan] 0.5 mg PO BID PRN 3 Days #6 tab 02/27/23 [Rx] Nicotine 14Mg/24Hr Patch [Habitrol] 1 patch TRANSDERM DAILY 14 Days #14 patch 02/27/23 [Rx] Paliperidone [Invega] 3 mg PO HS 30 Days #30 tab 02/27/23 [Rx] Activity/Diet/Wound Care/Special Instructions: Avoid the use of street drugs and alcohol. Take all medications as prescribed. When you are in need of refills on your medications, please contact your medical provider and/or outpatient psychiatrist/provider to have this done. Please go to your scheduled outpatient appointment for aftercare treatment. If symptoms return or become worse, call the crisis line at and/or go to the nearest emergency room for evaluation. National Suicide Hotline 688. Discharge Disposition: HOME SELF-CARE
== END 2023-02-27 12:15 | disposition home or self-care (01) | DRG 917 ==
LOC: 3MHU 13:47
PROVIDERS: ADMIT Psychiatry & Neurology Psychiatry; ATTEND Psychiatry & Neurology Psychiatry
DX: T50.902A Poisoning by unspecified drugs, medicaments and biological substances, intentional self-harm, initial encounter (principal); J69.0 Pneumonitis due to inhalation of food and vomit; F25.9 Schizoaffective disorder, unspecified; F17.200 Nicotine dependence, unspecified, uncomplicated; F19.10 Other psychoactive substance abuse, uncomplicated; F32.A Depression, unspecified; F41.9 Anxiety disorder, unspecified; Z79.51 Long term (current) use of inhaled steroids; Z79.899 Other long term (current) drug therapy; Z91.51 Personal history of suicidal behavior
CPT/HCPCS: 80061; 83036; 84443; 85027

== ENCOUNTER → 2023-03-13 | Outpatient (CLI) | payer MEDICARE ==
--- NOTE | 2023-03-16 11:04 | CT ---
EXAMINATION TYPE: CT abdomen pelvis wo/w con CT DLP: 2582.7 mGycm, Automated exposure control for dose reduction was used. DATE OF EXAM: 03/13/2023 6:33 PM COMPARISON: Ultrasound 02/15/2023. CLINICAL INDICATION:Male, 57 years old with history of R93.421 ABNORMAL FINDINGS IMAGING OF KIDNEY; L ower abdominal pain that radiates towards back x 2 years. TECHNIQUE: Axial CT of the ;CT abdomen pelvis wo/w con;Sagittal and coronal reformats were created o n a separate workstation. Contrast used:100 cc mL of Isovue 300 without and with IV Contrast, (none if empty) Oral contrast used: with Oral Contrast (none if empty) FINDINGS: LOWER CHEST: Trace left pleural effusion.r epicardial fat lymph nodes measuring 15 mm on the left and 9 mm on the right. ABDOMEN LIVER: Nodular border with a shrunken appearance of the liver. No suspicious mass.e GALLBLADDER AND BILE DUCTS: Unremarkable. PANCREAS: Unremarkable. SPLEEN: Enlarged for size measuring up to 17.7 cm. ADRENAL GLANDS: Unremarkable. KIDNEYS AND URETERS: No evidence of hydronephrosis or renal calculus. The ureters are unremarkable. PELVIS BLADDER: Unremarkable REPRODUCTIVE: Unremarkable. ABDOMEN & PELVIS STOMACH AND BOWEL: No evidence of bowel obstruction. PERITONEUM/RETROPERITONEUM: No evidence of pneumoperitoneum or free fluid. VASCULATURE: No evidence of aortic aneurysm. Recanalization of the periumbilical vein. No bowel varic es are along the anterior abdominal wall. MUSCULOSKELETAL: No acute osseous abnormalities, intramuscular lesion in the right psoas muscle measu ring 10.1 x 6.1 x 5.6 cm. Fixation hardware in the lower spine involving L3 L4 L5 and S1. Hardware ap pears intact. LYMPH NODES: No gross evidence for lymphadenopathy. SOFT TISSUE/ABDOMINAL WALL: Unremarkable IMPRESSION: 1. Right psoas muscle cystic lesion correlate with ultrasound. Findings could represent sequela prio r surgery of the the spine. 2. Hepatic cirrhosis with evidence of portal hypertension with splenomegaly and varices. No suspicio us observations visualized.
== END | disposition home or self-care (01) ==
LOC: RADCTMAIN 15:43
PROVIDERS: ATTEND Internal Medicine Gastroenterology
DX: K74.60 Unspecified cirrhosis of liver (principal); K76.6 Portal hypertension; R93.421 Abnormal radiologic findings on diagnostic imaging of right kidney; R16.1 Splenomegaly, not elsewhere classified
CPT/HCPCS: 74178; Q9967